=== PATIENT | female | born 1965 | race Caucasian/White ===

== ENCOUNTER 2019-07-16 01:45 | Inpatient (IN) | payer MEDICARE, MEDICAID ==
[2019-07-16 02:53] LABS: Urine Appearance Cloudy; Urine Bacteria Absent (Absent); Urine Bilirubin Negative (Negative); Urine Blood 2+ (Negative); Urine Color Yellow; Urine Glucose Negative (Negative); Urine Ketones Negative (Negative); Urine Nitrite Negative (Negative); Urine Protein 1+(30 mg/dL) (Negative); Urine Red Blood Cell 3+(>10/hpf) (Absent); Urine Specific Gravity 1.019 (1.010-1.030); Urine Squamous Epithelial Cell Present (Absent); Urine Urobilinogen Negative (Negative); Urine White Blood Cell Trace(0-5/hpf) (Absent)
[2019-07-16 03:04] LABS: Urine Benzodiazepine Screen None Detected (None Detect); Urine Opiates Screen None Detected (None Detect)
[2019-07-16 03:09] LABS: ABS Eosinophils 0.1 10^3/ul (0-0.6); ABS Lymphocytes 1.3 10^3/ul (1.0-4.8); ABS Monocytes 0.5 10^3/ul (0-0.8); ABS Neutrophils 6.2 10^3/ul (1.5-7.7); Hematocrit 47 % (35-47); Hemoglobin 15.5 g/dL (12.0-16.0); Lymphocyte % 16.5 %; Mean Corpuscular HGB Conc 33 g/dL (31-36); Mean Corpuscular Hemoglobin 28 pg (27-31); Mean Corpuscular Volume 82 fL (80-97); Mean Platelet Volume 7.7 fL (7.4-10.4); Nucleated Red Blood Cells % 0.1; Platelet Count 220 10^3/uL (150-450); Red Blood Count 5.65 10^6 /uL (3.70-4.87); Red Cell Distribution Width 14 % (10-15); White Blood Count 8.2 10^3/uL (3.5-10.8)
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
[2019-07-16 03:44] LABS: ALT 23 U/L (7-52); AST 27 U/L (13-39); Albumin 4.3 g/dL (3.2-5.2); Albumin/Globulin Ratio 1.2 (1-3); Alkaline Phosphatase 80 U/L (34-104); Anion Gap 8 mmol/L (2-11); BUN/Creatinine Ratio 12.4 (8-20); Blood Urea Nitrogen 11 mg/dL (6-24); CO2 Carbon Dioxide 26 mmol/L (22-32); Calcium 9.5 mg/dL (8.6-10.3); Chloride 101 mmol/L (101-111); EGFR Non-African American 66.1 (>60); Globulin 3.5 g/dL (2-4); Glucose 146 mg/dL (70-100); Potassium 3.6 mmol/L (3.5-5.0); Sodium 135 mmol/L (135-145); Total Protein 7.8 g/dL (6.4-8.9)
[2019-07-16 03:46] LABS: Alcohol < 10 mg/dL (<10); Salicylate < 2.50 mg/dL (<30)
[2019-07-16 04:00] LABS: TSH (Thyroid Stimulating Horm) 1.48 mcIU/mL (0.34-5.60)
[2019-07-16 04:50] LABS: Acetaminophen 0 mcg/mL
--- NOTE | 2019-07-16 07:12 | ED ---
Progress - Progress Note Progress Note: Patient is a sign out at 07:00 on 07/16/[address] Cheryl Constantino MD to Dr. Elaina Avitia MD at shift change, pending hold, evaluation, and disposition. At 11:50, MH contact acid plant operator reports that the patients case was reviewed by Dr. Jair Devine who will admit the patient to [facility] with a diagnosis of schizophrenia. Patient will be admitted to [facility] with a diagnosis of schizophrenia. - Consult/PCP Time Called: 11:50 Re-Evaluation - Re-Evaluation First Eval Re-Evaluation Time: 11:50 Change: Unchanged Comment: Patient will be admitted to [facility] Psych. Course/Dx - Diagnoses Provider Diagnoses: Psychosis, Schizophrenia - Provider Notifications Discussed Care Of Patient With: Jair Devine - At 11:50, contact acid plant operator reports that the patients case was reviewed by Dr. Jair Devine who will admit the patient to [facility] with a diagnosis of schizophrenia. Time Discussed With Above Provider: 11:50 Instructed by Provider To: Admit As Inpatient Discharge ED - Sign-Out/Discharge Documenting (check all that apply): Patient Departure - Admit, Receiving Sign- Out Receiving patient FROM: Cheryl Constantino - 07:00 on 07/16/19 - Discharge Plan Condition: Stable Disposition: PSYCHIATRIC FACILITY-[facility] Referrals: Nicolas Holt MD [Primary Care Provider] - - Attestation Statements Document Initiated by Scribe: Yes Documenting Scribe: Neelam Meadows Provider For Whom Scribe is Documenting (Include Credential): Elaina Avitia MD Scribe Attestation: Neelam Keita, scribed for Elaina Avitia MD on 07/16/19 at 1137. Status of Scribe Document: Ready
[2019-07-16] MEDS ORDERED: Al Hydrox/Mg Hydrox/Simet LIQ* 30 ML UDC PO PRN (11:07)
--- NOTE | 2019-07-16 12:02 | HP ---
H&P (Free Text) History and Physical: Justification for admission: Immediate Safety. CC " I have purity" Patient brought to [facility] emergency department by ambulance. When asking the patient the things that led to coming to the hospital the patient replied " what about me God, and not the homeless man ? Food is greer and should not be thrown away, time and evil will results in mistakes and no one concisely." Patient refusing medications at this time stating that all medications are a depressant and do you want me to be depressed? Patient is refusing to take medical and psychiatric medications. Patient denied access to firearms. Patient reported "perfect" sleep and appetite. The patient denied homicidal ideation intent or plan. The patient denied auditory hallucinations and reported seeing the future. Patient unable to participate in meaningful way to gather a accurate psychiatric review of systems PAST PSYCHIATRIC HISTORY: Prior Diagnosis : Schizophrenia History of past Psychiatric Hospitalizations: Multiple prior hospitalizations at [facility] that include 11/2015, 07/2013, 03/2013. [facility] 2007 for 7 months History of past suicide/homicide attempts : Denied past suicide attempts or self injurious behaviors. No history of violence. Outpatient follow-up: Medications: Past trials of medications include risperdal, Invega injection , trazodone Guardianship: None. FAMILY HISTORY: - Suicide: Denied family history of suicide. - Mental illness: Brother bipolar disorder, sister schizophrenia. - Substance abuse: Denied substance abuse among family members. SUBSTANCE ABUSE HISTORY: Denied using alcohol, tobacco, heroin cocaine or other illicit substances. Denied abusing pills for recreational use. Denied past Substance abuse treatment. SOCIAL HISTORY: - Denied a history of childhood physical and or sexual abuse Born in [facility] and raised by both parents. - Education: Completed College. No history of special education. - Living situation: Currently lives in [facility] - Employment history: unemployed on [employer] - Relationship: Single and has no children. - Legal history: Denied - service history: Denied PAST MEDICAL HISTORY: Hypertension. - Allergies: Sulfa drug allergy Physical Exam: Please see ED note Mental Status Exam on Admission APPEARANCE : 54 year old Female who appears stated age. Patient is not malodourous, and appears to have fair hygiene and grooming. BEHAVIOR: able to respond to redirection. EYE CONTACT: Fair PSYCHOMOTOR ACTIVITY: No psychomotor agitation or retardation. MOVEMENTS: No abnormal movements observed. SPEECH : hyperverbal MOOD : "Great " AFFECT : Type elevated Range is restricted Mood Incongruent THOUGHT PROCESS: tangential , loose associations , THOUGHT CONTENT: grandiose delusions PERCEPTION: Appears to responding to internal cues and seeing the future. SUICIDALITY Denied suicidal ideation, intent or plan. HOMICIDALITY Denied homicidal ideation, intent or plan. Insight/judgment: Poor insight and judgment ORIENTATION: Oriented to self, location, and time. Diagnosis on Admission: Schizophrenia. Assessment: 54 year old female with history of schizophrenia and medication non-compliance currently having a episode of psychosis and requires admission to the BSU at [facility]. Plan #Admit to BSU, Q15 minute observation. Start regular diet. Encourage participation in activities on the milieu. #Patient evaluated in ED and was determined by the emergency room Physician to be medically fit for admission to the BSU. # Justification for Admission: For immediate safety per outlined in the [facility] Hygiene Code. # The patient requires psychiatric inpatient admission at this time to assure safety, receive treatment and work toward stabilization. # Labs ordered: CBC, CMP, UDS, TSH, HBA1c, TSH, Toxicology screen, Urine analysis, and lipid profile. # EKG ordered for risk of QT prolongation of antipsychotic medication. # Start Invega 6mg PO daily for psychosis # Given history of medication non compliance, patient would benefit from long acting anti-psychotic injection. # Obtain collateral information once release is signed. # Collaboration with Social Work # Patient requires treatment and without proposed treatment patient will continue to be a danger to herself. Patient will require treatment over objection and appropriate paperwork will be completed # Hospitalist consulted for hypertension management #Goals before discharge include: To eliminate/ reduce suicidal ideation Tentative Discharge: Pending psychiatric stabilization The risks, benefits, and alternative treatment options were discussed as well as the risks of refusing treatment. After this discussion and an acknowledgement of this understanding was made. A risk/ benefit assessment of treatment was considered and discussed with the patient. When comparing the risks of treatment with the dangers of not receiving treatment, the benefits of treatment outweigh the treatment risks at this time. Risks of allergy, suicidal ideation, behavioral changes, dystonia, rashes, electrolyte imbalances, movement disorders, cardiac conduction changes, serotonin syndrome, metabolic risks and NMS were among some of the risks discussed. Sodium 135 mmol/L (135-145) 07/16/19 03:01 Potassium 3.6 mmol/L (3.5-5.0) 07/16/19 03:01 BUN 11 mg/dL (6-24) 07/16/19 03:01 Creatinine 0.89 mg/dL (0.51-0.95) 07/16/19 03:01 Calcium 9.5 mg/dL (8.6-10.3) 07/16/19 03:01 AST 27 U/L (13-39) 07/16/19 03:01 ALT 23 U/L (7-52) 07/16/19 03:01
[2019-07-16] MEDS: Hydrochlorothiazide TAB* 25 MG PO SCH ×2 (14:27→21:44)
[2019-07-16] MEDS: Paliperidone ER TAB* 6 MG TAB.ER PO SCH (14:27)
[2019-07-16] MEDS: Lisinopril TAB* 5 MG PO SCH ×2 (14:27→21:44)
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
[2019-07-16] MEDS ORDERED: cloNIDine TAB* 0.1 MG PO ONE (23:15)
[2019-07-16] MEDS ORDERED: cloNIDine TAB* 0.1 MG ONE (23:16)
[2019-07-17] MEDS: OLANzapine TAB* 10 MG PO PRN (01:59)
[2019-07-17] MEDS: Vitamin THERAPEUTIC TAB PO SCH (07:43)
[2019-07-17] MEDS: Lisinopril TAB* 5 MG PO SCH (07:43)
[2019-07-17] MEDS: Hydrochlorothiazide TAB* 25 MG PO SCH (07:43)
[2019-07-17] MEDS: Paliperidone ER TAB* 6 MG TAB.ER PO SCH (07:46)
--- NOTE | 2019-07-17 11:45 | PN ---
Subjective - Subjective Date of Service: 07/17/19 Service Type: 73590 Hosp care 35 min high complexity Subjective: Nursing Report: Patient was visible on unit, refusing to take invega, did not sleep overnight CC: " There needs to be leadership" Patient had a episode of hypotension and bradycardia last evening. She took blood pressure medications yesterday. Patient continued to make bizarre statements to staff. Patient did not sleep overnight. Patient reported that she doesnt need medications and that a cold bath will fix everything. She reported that she has schizophrenia and is going to anyway so she questions why she needs medications. Objective - General Observations Appearance: Disheveled Appears Stated Age: Yes Stature: Overweight Posture: Slumped Eye Contact: Avoidant Behavior/Activity: Accelerated - Interaction Observations Attitude Towards Examiner: Uncooperative Stated Mood: Elevated Affect: Labile Speech Pattern/Tone: Excessive Thought Process: Loose Associations Perception: Derealization Thought Content: Grandiose Thought Process: Lethality: Paranoid Ideation Hallucination Type: Denies Delusion Type: Grandeur - Cognitive Function Orientation: A&O x 4 Level of Consciousness: Awake Ability to Make Reasonable Decisions: Serverely Impaired - Medication Compliance Cooperative with Inpatient Medication Regimen: No - Group Participation Participates in Group Activities: No Assessment - Assessment Merits Inpatient Hospitalization: For Immediate Safety Clinical Impression: 54 year old female with history of schizophrenia and medication non- compliance currently having a episode of psychosis and requires admission to the BSU at [facility]. Plan - Plan Treatment Plan: Name: CHANTAL GRESHAM Birthdate: 1965 [id number] #Q15 minute observation. # The patient requires psychiatric inpatient admission at this time to assure safety, receive treatment and work toward stabilization. # EKG ordered for risk of QT prolongation of antipsychotic medication. # Continue Invega 6mg PO daily for psychosis # Given history of medication non compliance, patient would benefit from long acting anti-psychotic injection. # Obtain collateral information once release is signed. # Collaboration with Social Work # Patient requires treatment and without proposed treatment patient will continue to be a danger to herself. # Treatment over objection paperwork completed # Hospitalist consulted for hypertension management and plan to continue to follow the patient #Goals before discharge include: Psychiatric stabilization Tentative Discharge: Pending psychiatric stabilization Continued Medication Management: Continue Outpt Medication Medications: Current Medications Acetaminophen (Tylenol Tab*) 650 mg PO Q4H PRN PRN Reason: for pain; or Temp >101 F Al Hydrox/Mg Hydrox/Simethicone (Maalox Plus*) 30 ml PO Q4H PRN PRN Reason: INDIGESTION Hydrochlorothiazide (Hydrodiuril Tab*) 25 mg PO DAILY [facility] Last Admin: 07/17/19 07:43 Dose: 25 mg Lisinopril (Prinivil Tab*) 5 mg PO DAILY [facility] Last Admin: 07/17/19 07:43 Dose: 5 mg Multivitamins (Theragran Tab*) 1 tab PO DAILY [facility] Last Admin: 07/17/19 07:43 Dose: 1 tab Olanzapine (Zyprexa Tab*) 10 mg PO Q6H PRN PRN Reason: AGITATION Last Admin: 07/17/19 01:59 Dose: 10 mg Paliperidone (Invega Er Tab*) 6 mg PO DAILY [facility] Last Admin: 07/17/19 07:46 Dose: Not Given - Discharge Plan Discharge Plan: Inpatient Hospitalization
--- NOTE | 2019-07-17 18:43 | PN ---
Subjective Date of Service: 07/17/19 Interval History: Ms. Monteiro is laying in bed when I enter. She denies galeana, vision changes, but is quickly distracted and changes subjects. She has no complaints today. Objective Active Medications: Acetaminophen (Tylenol Tab*) 650 mg PO Q4H PRN PRN Reason: for pain; or Temp >101 F Al Hydrox/Mg Hydrox/Simethicone (Maalox Plus*) 30 ml PO Q4H PRN PRN Reason: INDIGESTION Hydrochlorothiazide (Hydrodiuril Tab*) 25 mg PO DAILY [facility] Last Admin: 07/17/19 07:43 Dose: 25 mg Lisinopril (Prinivil Tab*) 10 mg PO DAILY [facility] Multivitamins (Theragran Tab*) 1 tab PO DAILY [facility] Last Admin: 07/17/19 07:43 Dose: 1 tab Olanzapine (Zyprexa Tab*) 10 mg PO Q6H PRN PRN Reason: AGITATION Last Admin: 07/17/19 01:59 Dose: 10 mg Paliperidone (Invega Er Tab*) 6 mg PO DAILY [facility] Last Admin: 07/17/19 07:46 Dose: Not Given Vital Signs: Temp Pulse Resp BP Pulse Ox 98.6 F 66 16 173/43 99 07/17/19 10:08 07/17/19 10:08 07/17/19 12:55 07/17/19 10:08 07/17/19 10:08 Oxygen Devices in Use Now: None Appearance: Ms. Monteiro is an obese middle-aged white woman who is sitting up in bed. She appears to be in no acute distress. She is easily distracted and fanciful during conversation. Eyes: No Scleral Icterus, PERRLA Ears/Nose/Mouth/Throat: NL Teeth, Lips, Gums, Clear Oropharnyx, Mucous Membranes Moist Neck: NL Appearance and Movements; NL JVP, Trachea Midline Respiratory: Symmetrical Chest Expansion and Respiratory Effort, Clear to Auscultation Cardiovascular: NL Sounds; No Murmurs; No JVD, RRR, No Edema Abdominal: NL Sounds; No Tenderness; No Distention, No Hepatosplenomegaly Extremities: No Edema, No Clubbing, Cyanosis Result Diagrams: 07/16/19 03:01 07/16/19 03:01 Additional Lab and Data: Lab Results 07/16/19 07/16/19 07/16/19 Range/Units 02:07 02:07 03:01 WBC 8.2 (3.5-10.8) 10^3/uL RBC 5.65 H (3.70-4.87) 10^6 /uL Hgb 15.5 (12.0-16.0) g/dL Hct 47 (35-47) % MCV 82 (80-97) fL MCH 28 (27-31) pg MCHC 33 (31-36) g/dL RDW 14 (10-15) % Plt Count 220 (150-450) 10^3/uL MPV 7.7 (7.4-10.4) fL Neut % (Auto) 75.5 % Lymph % (Auto) 16.5 % [place] % (Auto) 6.6 % Eos % (Auto) 1.0 % Baso % (Auto) 0.4 % Absolute Neuts (auto) 6.2 (1.5-7.7) 10^3/ul Absolute Lymphs (auto) 1.3 (1.0-4.8) 10^3/ul Absolute Monos (auto) 0.5 (0-0.8) 10^3/ul Absolute Eos (auto) 0.1 (0-0.6) 10^3/ul Absolute Basos (auto) 0.0 (0-0.2) 10^3/ul Absolute Nucleated RBC 0.0 10^3/ul Nucleated RBC % 0.1 Urine Color Yellow Urine Appearance Cloudy Urine pH 5.0 (5-9) Ur Specific Miranda 1.019 (1.010-1.030) Urine Protein 1+(30 mg/dl) A (Negative) Urine Ketones Negative (Negative) Urine Blood 2+ A (Negative) Urine Nitrate Negative (Negative) Urine Bilirubin Negative (Negative) Urine Urobilinogen Negative (Negative) Ur Leukocyte Esterase Negative (Negative) Urine WBC (Auto) Trace(0-5/hpf) (Absent) Urine RBC (Auto) 3+(>10/hpf) A (Absent) Ur Squamous Epith Cells Present A (Absent) Urine Bacteria Absent (Absent) Urine Glucose Negative (Negative) Urine Opiates Screen None detected (None Detect) Ur Barbiturates Screen None detected (None Detect) Ur Phencyclidine Scrn None detected (None Detect) Ur Amphetamines Screen None detected (None Detect) U Benzodiazepines Scrn None detected (None Detect) Urine Cocaine Screen None detected (None Detect) U Cannabinoids Screen None detected (None Detect) Assess/Plan/Problems-Billing Assessment: 54 yof PMHx HTN untreated, schizophrenia presents to [facility] for admission, found to have hypertension. - Patient Problems (1) Hypertension Comment: -pt reports h/o HTN which she has no longer takes rx for; unable to give further details, unknow previous rx, poor historian -lisinopril 5, HCTZ 25 today with mild decrease in bp, SBP 170's -increase lisinopril to 10, continue HCTZ -BP q4-6 hours for trend -continue to monitor (2) Schizophrenia, paranoid type Comment: -Management per [facility] team (3) Full code status Status and Disposition: Inpatient. Discharge per primary team.
[2019-07-18] MEDS: Hydrochlorothiazide TAB* 25 MG PO SCH (10:21)
[2019-07-18] MEDS: Lisinopril TAB* 10 MG PO SCH (10:21)
[2019-07-18] MEDS: Paliperidone ER TAB* 6 MG TAB.ER PO SCH (10:21)
[2019-07-18] MEDS: Vitamin THERAPEUTIC TAB PO SCH (10:21)
--- NOTE | 2019-07-18 12:23 | PN ---
Subjective - Subjective Date of Service: 07/18/19 Service Type: [id number] Hosp care 35 min high complexity Subjective: Nursing Report: Patient was visible on unit, not compliant with medication refusing vital signs CC: "I am super Patient was seen and evaluated today in the common room. The patient reported she is satisfaction guaranteed. She refused labs, vital signs and medications last evening and this morning. Patient continues to display bizarre behavior. She reported having adequate appetite. Objective - General Observations Appearance: Disheveled Appears Stated Age: Yes Stature: Overweight Posture: Slumped Eye Contact: Avoidant Behavior/Activity: Peculiar - Interaction Observations Attitude Towards Examiner: Uncooperative Stated Mood: Expansive Affect: Labile Speech Pattern/Tone: Inappropriate, Echolalia Thought Process: Loose Associations Perception: Depersonalization Thought Content: Paranoid Thought Process: Lethality: Paranoid Ideation Hallucination Type: Denies Delusion Type: Grandeur - Cognitive Function Orientation: A&O x 4 Level of Consciousness: Awake - Medication Compliance Cooperative with Inpatient Medication Regimen: No - Group Participation Participates in Group Activities: No Assessment - Assessment Merits Inpatient Hospitalization: For Immediate Safety Clinical Impression: 54 year old female with history of schizophrenia and medication non- compliance currently having a episode of psychosis and requires admission to the [facility] at [facility]. Plan - Plan Treatment Plan: Name: CHANTAL GRESHAM Birthdate: 1965 [id number] #Q15 minute observation. # The patient requires psychiatric inpatient admission at this time to assure safety, receive treatment and work toward stabilization. # EKG ordered for risk of QT prolongation of antipsychotic medication. # Continue Invega 6mg PO daily for psychosis # Given history of medication non compliance, patient would benefit from long acting anti-psychotic injection. # Obtain collateral information once release is signed. # Collaboration with Social Work # Patient requires treatment and without proposed treatment patient will continue to be a danger to herself. # Treatment over objection paperwork completed # Hospitalist consulted for hypertension management and plan to continue to follow the patient #Goals before discharge include: Psychiatric stabilization Tentative Discharge: Pending psychiatric stabilization Continued Medication Management: Continue Outpt Medication Medications: Current Medications Acetaminophen (Tylenol Tab*) 650 mg PO Q4H PRN PRN Reason: for pain; or Temp >101 F Al Hydrox/Mg Hydrox/Simethicone (Maalox Plus*) 30 ml PO Q4H PRN PRN Reason: INDIGESTION Hydrochlorothiazide (Hydrodiuril Tab*) 25 mg PO DAILY [facility] Last Admin: 07/18/19 10:21 Dose: Not Given Lisinopril (Prinivil Tab*) 10 mg PO DAILY [facility] Last Admin: 07/18/19 10:21 Dose: Not Given Multivitamins (Theragran Tab*) 1 tab PO DAILY [facility] Last Admin: 07/18/19 10:21 Dose: Not Given Olanzapine (Zyprexa Tab*) 10 mg PO Q6H PRN PRN Reason: AGITATION Last Admin: 07/17/19 01:59 Dose: 10 mg Paliperidone (Invega Er Tab*) 6 mg PO DAILY [facility] Last Admin: 07/18/19 10:21 Dose: Not Given - Discharge Plan Discharge Plan: Inpatient Hospitalization
--- NOTE | 2019-07-18 17:06 | PN ---
Hospitalist Progress Note Date of Service: 07/18/19 Did not evaluate patient today, but have been following distantly. Patient has been refusing blood pressure checks by nursing staff. Will continue to follow. Hopefully with continued psychiatric therapy she will allow VS checks.
[2019-07-19] MEDS: Vitamin THERAPEUTIC TAB PO SCH (10:01)
[2019-07-19] MEDS: Hydrochlorothiazide TAB* 25 MG PO SCH (10:01)
[2019-07-19] MEDS: Lisinopril TAB* 10 MG PO SCH (10:01)
[2019-07-19] MEDS: Paliperidone ER TAB* 6 MG TAB.ER PO SCH (10:01)
--- NOTE | 2019-07-19 10:44 | PN ---
Subjective - Subjective Date of Service: 07/19/19 Service Type: [id number] Hosp care 35 min high complexity Subjective: Nursing Report: Patient was visible on unit, making bizarre statements, CC: " You are so fantastic Patient was seen and evaluated today. The patient reported she feels "fantastic ". She reported having visitors last evening. She reported having adequate appetite. She slept 1.5 hrs last night. Patient continues to refuse medications. Objective - General Observations Appearance: Disheveled Appears Stated Age: Yes Stature: Overweight Posture: Slumped Eye Contact: Avoidant Behavior/Activity: Peculiar - Interaction Observations Attitude Towards Examiner: Defensive Stated Mood: Expansive Affect: Bright Speech Pattern/Tone: Excessive Thought Process: Loose Associations Perception: Derealization Thought Content: Grandiose Thought Process: Lethality: Paranoid Ideation Hallucination Type: None Delusion Type: None - Cognitive Function Orientation: A&O x 4 Level of Consciousness: Awake Judgment Within Normal Limits: No Ability to Make Reasonable Decisions: Serverely Impaired - Medication Compliance Cooperative with Inpatient Medication Regimen: No - Group Participation Participates in Group Activities: No Assessment - Assessment Merits Inpatient Hospitalization: For Immediate Safety Clinical Impression: 54 year old female with history of schizophrenia and medication non- compliance currently having a episode of psychosis and requires admission to the [facility] at [facility]. Plan - Plan Treatment Plan: Name: CHANTAL GRESHAM Birthdate: 1965 [id number] #Q15 minute observation. # The patient requires psychiatric inpatient admission at this time to assure safety, receive treatment and work toward stabilization. # EKG ordered for risk of QT prolongation of antipsychotic medication. # Continue Invega 6mg PO daily for psychosis # Given history of medication non compliance, patient would benefit from long acting anti-psychotic injection. # Obtain collateral information once release is signed. # Collaboration with Social Work # Patient requires treatment and without proposed treatment patient will continue to be a danger to herself. # Treatment over objection paperwork completed awaiting court date # Hospitalist consulted for hypertension management and plan to continue to follow the patient #Goals before discharge include: Psychiatric stabilization Tentative Discharge: Pending psychiatric stabilization Continued Medication Management: Continue Outpt Medication Medications: Current Medications Acetaminophen (Tylenol Tab*) 650 mg PO Q4H PRN PRN Reason: for pain; or Temp >101 F Al Hydrox/Mg Hydrox/Simethicone (Maalox Plus*) 30 ml PO Q4H PRN PRN Reason: INDIGESTION Hydrochlorothiazide (Hydrodiuril Tab*) 25 mg PO DAILY [facility] Last Admin: 07/19/19 10:01 Dose: Not Given Lisinopril (Prinivil Tab*) 10 mg PO DAILY [facility] Last Admin: 07/19/19 10:01 Dose: Not Given Multivitamins (Theragran Tab*) 1 tab PO DAILY [facility] Last Admin: 07/19/19 10:01 Dose: Not Given Olanzapine (Zyprexa Tab*) 10 mg PO Q6H PRN PRN Reason: AGITATION Last Admin: 07/17/19 01:59 Dose: 10 mg Paliperidone (Invega Er Tab*) 6 mg PO DAILY [facility] Last Admin: 07/19/19 10:01 Dose: Not Given - Discharge Plan Discharge Plan: Inpatient Hospitalization
[2019-07-20] MEDS: Lisinopril TAB* 10 MG PO SCH (07:54)
[2019-07-20] MEDS: Paliperidone ER TAB* 6 MG TAB.ER PO SCH (07:54)
[2019-07-20] MEDS: Vitamin THERAPEUTIC TAB PO SCH (07:54)
[2019-07-20] MEDS: Hydrochlorothiazide TAB* 25 MG PO SCH (07:54)
[2019-07-21] MEDS: Acetaminophen TAB* 325 MG PO PRN (03:40)
[2019-07-21] MEDS: Paliperidone ER TAB* 6 MG TAB.ER PO SCH (08:12)
[2019-07-21] MEDS: Lisinopril TAB* 10 MG PO SCH (08:12)
[2019-07-21] MEDS: Vitamin THERAPEUTIC TAB PO SCH (08:12)
[2019-07-21] MEDS: Hydrochlorothiazide TAB* 25 MG PO SCH (08:12)
--- NOTE | 2019-07-21 17:29 | PN ---
Progress Note - Progress Note Date of Service: 07/21/19 Note: Katya declined to see me. Says " you aren't my doctor " and walked away. Several attempts were unsuccessful. Appears guarded and suspicious. Per nursing she has been the same since admission and refusing to take meds but not a management problem over all. Plan is to continue close monitoring and pursue TOO.
[2019-07-22] MEDS: Lisinopril TAB* 10 MG PO SCH (09:31)
[2019-07-22] MEDS: Hydrochlorothiazide TAB* 25 MG PO SCH (09:31)
[2019-07-22] MEDS: Paliperidone ER TAB* 6 MG TAB.ER PO SCH (09:32)
[2019-07-22] MEDS: Vitamin THERAPEUTIC TAB PO SCH (09:32)
--- NOTE | 2019-07-22 13:11 | PN ---
Subjective - Subjective Date of Service: 07/22/19 Service Type: [id number] Hosp care 35 min high complexity Subjective: Nursing Report: Patient was visible on unit, Not taking medications CC: "Satisfaction Patient was seen and evaluated today in the common room. The patient reported that everything is divine and perfection. She is refusing to take medications, labs, and vital signs. Patient had visitors over the weekend. Objective - General Observations Appearance: Disheveled Appears Stated Age: Yes Stature: Overweight Posture: Slumped Eye Contact: Intense Behavior/Activity: Accelerated - Interaction Observations Attitude Towards Examiner: Uncooperative Stated Mood: Elevated Affect: Incongruent Speech Pattern/Tone: Rambling Thought Process: Flight of Ideas Perception: Depersonalization Thought Content: Preoccupation/Ruminations Thought Process: Lethality: Paranoid Ideation Hallucination Type: Denies Delusion Type: Grandeur - Cognitive Function Orientation: A&O x 4 Level of Consciousness: Awake Ability to Make Reasonable Decisions: Serverely Impaired - Medication Compliance Cooperative with Inpatient Medication Regimen: No - Group Participation Participates in Group Activities: No Assessment - Assessment Merits Inpatient Hospitalization: For Immediate Safety Clinical Impression: 54 year old female with history of schizophrenia and medication non- compliance currently having a episode of psychosis and requires admission to the [facility] at [facility]. Plan - Plan Treatment Plan: Name: CHANTAL GRESHAM Birthdate: 1965 [id number] #Q15 minute observation. # The patient requires psychiatric inpatient admission at this time to assure safety, receive treatment and work toward stabilization. # EKG ordered for risk of QT prolongation of antipsychotic medication. # Continue Invega 6mg PO daily for psychosis # Given history of medication non compliance, patient would benefit from long acting anti-psychotic injection. # Collateral information from the patients sister who confirmed patient is far from baseline scattered thoughts, family is encouraging medications # Collaboration with Social Work # Patient requires treatment and without proposed treatment patient will continue to be a danger to herself. # Treatment over objection paperwork completed awaiting court date # Patient was evaluated for hypertension #Goals before discharge include: Psychiatric stabilization Tentative Discharge: Pending psychiatric stabilization Sodium 135 mmol/L (135-145) 07/16/19 03:01 Potassium 3.6 mmol/L (3.5-5.0) 07/16/19 03:01 BUN 11 mg/dL (6-24) 07/16/19 03:01 Creatinine 0.89 mg/dL (0.51-0.95) 07/16/19 03:01 Calcium 9.5 mg/dL (8.6-10.3) 07/16/19 03:01 AST 27 U/L (13-39) 07/16/19 03:01 ALT 23 U/L (7-52) 07/16/19 03:01 Continued Medication Management: Continue Outpt Medication Medications: Current Medications Acetaminophen (Tylenol Tab*) 650 mg PO Q4H PRN PRN Reason: for pain; or Temp >101 F Last Admin: 07/21/19 03:40 Dose: 650 mg Al Hydrox/Mg Hydrox/Simethicone (Maalox Plus*) 30 ml PO Q4H PRN PRN Reason: INDIGESTION Hydrochlorothiazide (Hydrodiuril Tab*) 25 mg PO DAILY [facility] Last Admin: 07/22/19 09:31 Dose: Not Given Lisinopril (Prinivil Tab*) 10 mg PO DAILY [facility] Last Admin: 07/22/19 09:31 Dose: Not Given Multivitamins (Theragran Tab*) 1 tab PO DAILY [facility] Last Admin: 07/22/19 09:32 Dose: Not Given Olanzapine (Zyprexa Tab*) 10 mg PO Q6H PRN PRN Reason: AGITATION Last Admin: 07/17/19 01:59 Dose: 10 mg Paliperidone (Invega Er Tab*) 6 mg PO DAILY [facility] Last Admin: 07/22/19 09:32 Dose: Not Given - Discharge Plan Discharge Plan: Inpatient Hospitalization
[2019-07-23] MEDS: Acetaminophen TAB* 325 MG PO PRN (03:52)
[2019-07-23] MEDS: Hydrochlorothiazide TAB* 25 MG PO SCH (09:55)
[2019-07-23] MEDS: Lisinopril TAB* 10 MG PO SCH (09:55)
[2019-07-23] MEDS: Paliperidone ER TAB* 6 MG TAB.ER PO SCH ×2 (09:55→12:41)
[2019-07-23] MEDS: Vitamin THERAPEUTIC TAB PO SCH (09:55)
--- NOTE | 2019-07-23 12:51 | PN ---
Subjective - Subjective Date of Service: 07/23/19 Service Type: [id number] Hosp care 35 min high complexity Subjective: Nursing Report: Patient was visible on unit, making bizarre statements, had visitors overnight. CC: " Everything is fantastic Patient was seen and evaluated today. The patient reported she feels "fantastic ". Her brother came this afternoon to visit her. She took invega po this afternoon. She reported that she did not want to go to the [facility]. She reported having adequate appetite. Objective - General Observations Appearance: Disheveled Appears Stated Age: Yes Stature: Overweight Posture: Slumped Eye Contact: Intense Behavior/Activity: Accelerated - Interaction Observations Attitude Towards Examiner: Mistrustful Stated Mood: Anxious Affect: Blunted Speech Pattern/Tone: Electronic Thought Process: Disorganized Perception: WNL Thought Content: Grandiose Hallucination Type: Denies Delusion Type: Grandeur - Cognitive Function Orientation: A&O x 4 Level of Consciousness: Awake - Medication Compliance Cooperative with Inpatient Medication Regimen: Partial - Group Participation Participates in Group Activities: No Assessment - Assessment Merits Inpatient Hospitalization: For Immediate Safety Clinical Impression: 54 year old female with history of schizophrenia and medication non- compliance currently having a episode of psychosis and requires admission to the [facility] at [facility]. Plan - Plan Treatment Plan: Name: CHANTAL GRESHAM Birthdate: 1965 [id number] #Q15 minute observation. # The patient requires psychiatric inpatient admission at this time to assure safety, receive treatment and work toward stabilization. # EKG ordered for risk of QT prolongation of antipsychotic medication. # Continue Invega 6mg PO daily for psychosis. Patient took today. # Will order Invega 234mg long acting IM for tomorrow # Given history of medication non compliance, patient would benefit from long acting anti-psychotic injection. # Collateral information from the patients sister who confirmed patient is far from baseline scattered thoughts, family is encouraging medications # Collaboration with Social Work # Patient requires treatment and without proposed treatment patient will continue to be a danger to herself. # Treatment over objection paperwork completed awaiting court date # Patient was evaluated for hypertension and treatment was started however she has intermittent compliance #Goals before discharge include: Psychiatric stabilization Tentative Discharge: Pending psychiatric stabilization Sodium 135 mmol/L (135-145) 07/16/19 03:01 Potassium 3.6 mmol/L (3.5-5.0) 07/16/19 03:01 BUN 11 mg/dL (6-24) 07/16/19 03:01 Creatinine 0.89 mg/dL (0.51-0.95) 07/16/19 03:01 Calcium 9.5 mg/dL (8.6-10.3) 07/16/19 03:01 AST 27 U/L (13-39) 07/16/19 03:01 ALT 23 U/L (7-52) 07/16/19 03:01 Continued Medication Management: Continue Outpt Medication Medications: Current Medications Acetaminophen (Tylenol Tab*) 650 mg PO Q4H PRN PRN Reason: for pain; or Temp >101 F Last Admin: 07/23/19 03:52 Dose: 650 mg Al Hydrox/Mg Hydrox/Simethicone (Maalox Plus*) 30 ml PO Q4H PRN PRN Reason: INDIGESTION Hydrochlorothiazide (Hydrodiuril Tab*) 25 mg PO DAILY [facility] Last Admin: 07/23/19 09:55 Dose: Not Given Lisinopril (Prinivil Tab*) 10 mg PO DAILY [facility] Last Admin: 07/23/19 09:55 Dose: Not Given Multivitamins (Theragran Tab*) 1 tab PO DAILY [facility] Last Admin: 07/23/19 09:55 Dose: Not Given Olanzapine (Zyprexa Tab*) 10 mg PO Q6H PRN PRN Reason: AGITATION Last Admin: 07/17/19 01:59 Dose: 10 mg Paliperidone (Invega Er Tab*) 6 mg PO DAILY [facility] Last Admin: 07/23/19 12:41 Dose: 6 mg - Discharge Plan Discharge Plan: Inpatient Hospitalization Outpatient Program: [facility]
--- NOTE | 2019-07-23 15:48 | PN ---
Subjective Date of Service: 07/23/19 Interval History: Discussed with patient that she has not been allowing nursing staff to check BP. Discussed risks of having longterm hypertension. Patient states, "I would love for the nurses to check my blood pressure if it didn't hurt so much." She states that it hurts even when the BP is taken manually as opposed to with machine. Patient denies dizziness, headache, visual changes, chest pain, difficulty breathing, palpitations. Objective Active Medications: Acetaminophen (Tylenol Tab*) 650 mg PO Q4H PRN PRN Reason: for pain; or Temp >101 F Last Admin: 07/23/19 03:52 Dose: 650 mg Al Hydrox/Mg Hydrox/Simethicone (Maalox Plus*) 30 ml PO Q4H PRN PRN Reason: INDIGESTION Hydrochlorothiazide (Hydrodiuril Tab*) 25 mg PO DAILY [facility] Last Admin: 07/23/19 09:55 Dose: Not Given Lisinopril (Prinivil Tab*) 10 mg PO DAILY [facility] Last Admin: 07/23/19 09:55 Dose: Not Given Multivitamins (Theragran Tab*) 1 tab PO DAILY [facility] Last Admin: 07/23/19 09:55 Dose: Not Given Olanzapine (Zyprexa Tab*) 10 mg PO Q6H PRN PRN Reason: AGITATION Last Admin: 07/17/19 01:59 Dose: 10 mg Paliperidone (Invega Er Tab*) 6 mg PO DAILY [facility] Last Admin: 07/23/19 12:41 Dose: 6 mg Paliperidone Palmitate (Invega Sustenna*) 234 mg IM ONCE ONE Stop: 07/24/19 09:01 Vital Signs - 8 hr 07/23/19 14:34 Respiratory 16 Rate Oxygen Devices in Use Now: None Appearance: Middle aged white female, standing in room in BSU, appearing comfortable and in NAD Eyes: No Scleral Icterus, PERRLA Ears/Nose/Mouth/Throat: Mucous Membranes Moist Neck: Trachea Midline Respiratory: Symmetrical Chest Expansion and Respiratory Effort, - - patient declined auscultation Cardiovascular: - - patient declined exam Abdominal: - - patient declined exam Extremities: - - unable to assess as patient declines physical exam and is wearing pants and shows, though hands do not appear edematous and no clubbing to hands Skin: - - skin appears intact Neurological: Alert and Oriented x 3, NL Sensation, - - Psych: patient polite and pleasant Result Diagrams: 07/16/19 03:01 07/16/19 03:01 Additional Lab and Data: Lab Results 07/16/19 07/16/19 07/16/19 Range/Units 02:07 02:07 03:01 WBC 8.2 (3.5-10.8) 10^3/uL RBC 5.65 H (3.70-4.87) 10^6 /uL Hgb 15.5 (12.0-16.0) g/dL Hct 47 (35-47) % MCV 82 (80-97) fL MCH 28 (27-31) pg MCHC 33 (31-36) g/dL RDW 14 (10-15) % Plt Count 220 (150-450) 10^3/uL MPV 7.7 (7.4-10.4) fL Neut % (Auto) 75.5 % Lymph % (Auto) 16.5 % [place] % (Auto) 6.6 % Eos % (Auto) 1.0 % Baso % (Auto) 0.4 % Absolute Neuts (auto) 6.2 (1.5-7.7) 10^3/ul Absolute Lymphs (auto) 1.3 (1.0-4.8) 10^3/ul Absolute Monos (auto) 0.5 (0-0.8) 10^3/ul Absolute Eos (auto) 0.1 (0-0.6) 10^3/ul Absolute Basos (auto) 0.0 (0-0.2) 10^3/ul Absolute Nucleated RBC 0.0 10^3/ul Nucleated RBC % 0.1 Urine Color Yellow Urine Appearance Cloudy Urine pH 5.0 (5-9) Ur Specific [place] 1.019 (1.010-1.030) Urine Protein 1+(30 mg/dl) A (Negative) Urine Ketones Negative (Negative) Urine Blood 2+ A (Negative) Urine Nitrate Negative (Negative) Urine Bilirubin Negative (Negative) Urine Urobilinogen Negative (Negative) Ur Leukocyte Esterase Negative (Negative) Urine WBC (Auto) Trace(0-5/hpf) (Absent) Urine RBC (Auto) 3+(>10/hpf) A (Absent) Ur Squamous Epith Cells Present A (Absent) Urine Bacteria Absent (Absent) Urine Glucose Negative (Negative) Urine Opiates Screen None detected (None Detect) Ur Barbiturates Screen None detected (None Detect) Ur Phencyclidine Scrn None detected (None Detect) Ur Amphetamines Screen None detected (None Detect) U Benzodiazepines Scrn None detected (None Detect) Urine Cocaine Screen None detected (None Detect) U Cannabinoids Screen None detected (None Detect) Microbiology and Other Data: Microbiology 07/16/19 02:07 Urine Culture - Final Urine Assess/Plan/Problems-Billing Assessment: 54 yof PMHx HTN untreated, schizophrenia presents to [facility] for admission, found to have hypertension. - Patient Problems (1) Hypertension Current Visit: Yes Status: Acute Code(s): I10 - ESSENTIAL (PRIMARY) HYPERTENSION SNOMED Code(s): 61743580 Comment: -pt reports h/o HTN which she has no longer takes rx for at home; unable to give further details, unknow previous rx, poor historian -continue lisinopril and HCTZ -unfortunately, patient has been declining BP checks from nursing since 07/17/19 , which is before 10mg lisinopril dose was added -discussed risks of longstanding hypertension (2) Schizophrenia, paranoid type Current Visit: No Status: Acute Priority: High Onset Date: 11/13/15 Code (s): F20.0 - PARANOID SCHIZOPHRENIA SNOMED Code(s): 49631367 Comment: -Management per [facility] team (3) Full code status Current Visit: Yes Status: Acute Code(s): Z78.9 - OTHER SPECIFIED HEALTH STATUS SNOMED Code(s): 622899429 Status and Disposition: Disposition per psychiatry. I will sign off at this time as the patient has been refusing blood pressure checks. Please feel free to contact the hospitalist service if patient allows BP reading and it is elevated. We will be happy to see this patient again if needed.
[2019-07-24] MEDS ORDERED: Paliperidone SUSTENNA* 234 MG/1.5 ML IM ONE (09:00)
[2019-07-24] MEDS: Paliperidone ER TAB* 6 MG TAB.ER PO SCH (10:47)
[2019-07-24] MEDS: Vitamin THERAPEUTIC TAB PO SCH (10:48)
[2019-07-24] MEDS: Hydrochlorothiazide TAB* 25 MG PO SCH (10:49)
[2019-07-24] MEDS: Lisinopril TAB* 10 MG PO SCH (10:49)
--- NOTE | 2019-07-24 16:43 | PN ---
BS[facility]: Group Therapy Note - Service Type Service Type: [id number] Group Psychotherapy - Group Participation Patient Participating in Group: Yes Level of Group Participation: Attentive, Spontaneously Participate Relatedness to Group: Defended - Additional Group Comments Group Comments: Katya was late to group, but she was confident and greeted each person who entered late with the attitude of a clinical laboratory science professor who is pointing out the lateness of each additional pupil. She had exacting standards for the group and took detailed notes, although they did not appear to be helpful.
[2019-07-25] MEDS: Paliperidone ER TAB* 6 MG TAB.ER PO SCH (10:55)
[2019-07-25] MEDS: Vitamin THERAPEUTIC TAB PO SCH (10:55)
[2019-07-25] MEDS: Hydrochlorothiazide TAB* 25 MG PO SCH (10:55)
[2019-07-25] MEDS: Lisinopril TAB* 10 MG PO SCH (10:55)
--- NOTE | 2019-07-25 11:27 | PN ---
Subjective - Subjective Date of Service: 07/25/19 Service Type: [id number] Hosp care 35 min high complexity Subjective: Nursing Report: Patient was visible on unit slept overnight ate meals and went to groups. CC: " Everything is excellent Patient was seen and evaluated today. The patient reported she feels "excellent ". She received injection today without complications. She reported having adequate appetite. She is eager to attend yoga today. Objective - General Observations Appearance: Neat Appears Stated Age: Yes Stature: Overweight Posture: Slumped Eye Contact: Intense Behavior/Activity: Accelerated - Interaction Observations Attitude Towards Examiner: Mistrustful Stated Mood: Expansive Affect: Labile Speech Pattern/Tone: Normal Volume Thought Process: Loose Associations Thought Content: Paranoid, Grandiose Thought Process: Lethality: Paranoid Ideation Delusion Type: Control - Cognitive Function Orientation: A&O x 4 Level of Consciousness: Awake - Medication Compliance Cooperative with Inpatient Medication Regimen: Partial - Group Participation Participates in Group Activities: Yes Assessment - Assessment Merits Inpatient Hospitalization: For Immediate Safety Clinical Impression: 54 year old female with history of schizophrenia and medication non- compliance currently having a episode of psychosis and requires admission to the [facility] at [facility]. Plan - Plan Treatment Plan: Name: CHANTAL GRESHAM Birthdate: 1965 [id number] #Q15 minute observation. # The patient requires psychiatric inpatient admission at this time to assure safety, receive treatment and work toward stabilization. # EKG ordered for risk of QT prolongation of antipsychotic medication. # Continue Invega 6mg PO daily for psychosis. # Received Invega 234mg long acting IM today without complications next booster scheduled for 156mg on Monday and next due on 08/22/19 # Given history of medication non compliance, patient would benefit from long acting anti-psychotic injection. # Family meeting Monday at noon # Collaboration with Social Work # Patient requires treatment and without proposed treatment patient will continue to be a danger to herself. # Court date Monday at 215pm will cancel if patient continues to be compliant with medications. # Patient was evaluated for hypertension and treatment was started however refusing vital signs and has intermittent compliance with medications #Goals before discharge include: Psychiatric stabilization Tentative Discharge: Pending psychiatric stabilization Sodium 135 mmol/L (135-145) 07/16/19 03:01 Potassium 3.6 mmol/L (3.5-5.0) 07/16/19 03:01 BUN 11 mg/dL (6-24) 07/16/19 03:01 Creatinine 0.89 mg/dL (0.51-0.95) 07/16/19 03:01 Calcium 9.5 mg/dL (8.6-10.3) 07/16/19 03:01 AST 27 U/L (13-39) 07/16/19 03:01 ALT 23 U/L (7-52) 07/16/19 03:01 Continued Medication Management: Continue Outpt Medication Medications: Current Medications Acetaminophen (Tylenol Tab*) 650 mg PO Q4H PRN PRN Reason: for pain; or Temp >101 F Last Admin: 07/23/19 03:52 Dose: 650 mg Al Hydrox/Mg Hydrox/Simethicone (Maalox Plus*) 30 ml PO Q4H PRN PRN Reason: INDIGESTION Hydrochlorothiazide (Hydrodiuril Tab*) 25 mg PO DAILY [facility] Last Admin: 07/25/19 10:55 Dose: Not Given Lisinopril (Prinivil Tab*) 10 mg PO DAILY [facility] Last Admin: 07/25/19 10:55 Dose: Not Given Multivitamins (Theragran Tab*) 1 tab PO DAILY [facility] Last Admin: 07/25/19 10:55 Dose: Not Given Olanzapine (Zyprexa Tab*) 10 mg PO Q6H PRN PRN Reason: AGITATION Last Admin: 07/17/19 01:59 Dose: 10 mg Paliperidone (Invega Er Tab*) 6 mg PO DAILY [facility] Last Admin: 07/25/19 10:55 Dose: Not Given - Discharge Plan Discharge Plan: Inpatient Hospitalization
[2019-07-26] MEDS: Hydrochlorothiazide TAB* 25 MG PO SCH ×2 (09:31→13:15)
[2019-07-26] MEDS: Lisinopril TAB* 10 MG PO SCH ×2 (09:31→13:15)
[2019-07-26] MEDS: Vitamin THERAPEUTIC TAB PO SCH (09:31)
--- NOTE | 2019-07-26 10:44 | PN ---
Subjective - Subjective Date of Service: 07/26/19 Service Type: [id number] Hosp care 35 min high complexity Subjective: Nursing Report: Patient was visible on unit, no behavioral disturbances reported , slept 4 hours overnight ate meals and went to some groups. CC: " Excellent Patient was seen and evaluated today. Patient was seen before encounter today in her room. The patient reported she is refusing blood pressure readings from the staff because she only wants her body to be read in private practice. Patient is looking forward to family meeting this afternoon. Patient ate meals. Meeting went well and patients family expressed concern that she is not able to engage in her own care in a rational and meaningful way. However patient did allow blood pressure to be taken and took invega and blood pressure medications. Objective - General Observations Appearance: Neat Appears Stated Age: Yes Stature: WNL Posture: WNL Eye Contact: Intense Behavior/Activity: Accelerated - Interaction Observations Attitude Towards Examiner: Mistrustful Stated Mood: Elevated Affect: Bright Speech Pattern/Tone: Rambling Thought Process: Loose Associations Thought Content: Grandiose Thought Process: Lethality: Paranoid Ideation Hallucination Type: Denies Delusion Type: Control - Cognitive Function Orientation: A&O x 4 Level of Consciousness: Awake - Medication Compliance Cooperative with Inpatient Medication Regimen: Partial - Group Participation Participates in Group Activities: Partial Assessment - Assessment Clinical Impression: 54 year old female with history of schizophrenia and medication non- compliance currently having a episode of psychosis and requires admission to the [facility] at [facility]. Plan - Plan Treatment Plan: Name: CHANTAL GRESHAM Birthdate: 1965 [id number] #Q15 minute observation. Today the patient took po invega and anti hypertension medications, vital signs. # The patient requires psychiatric inpatient admission at this time to assure safety, receive treatment and work toward stabilization. # EKG ordered for risk of QT prolongation of antipsychotic medication. # Continue Invega 6mg PO daily for psychosis. # Received Invega 234mg long acting IM 07/25/19 next booster scheduled for 156mg on Monday and next due on 08/22/19 # Family meeting today # [facility] or [facility] depending on patients hospitalization course # Collaboration with Social Work # Court date Monday at 215pm #Goals before discharge include: Psychiatric stabilization Tentative Discharge: Pending psychiatric stabilization Sodium 135 mmol/L (135-145) 07/16/19 03:01 Potassium 3.6 mmol/L (3.5-5.0) 07/16/19 03:01 BUN 11 mg/dL (6-24) 07/16/19 03:01 Creatinine 0.89 mg/dL (0.51-0.95) 07/16/19 03:01 Calcium 9.5 mg/dL (8.6-10.3) 07/16/19 03:01 AST 27 U/L (13-39) 07/16/19 03:01 ALT 23 U/L (7-52) 07/16/19 03:01 Continued Medication Management: Continue Outpt Medication Medications: Current Medications Acetaminophen (Tylenol Tab*) 650 mg PO Q4H PRN PRN Reason: for pain; or Temp >101 F Last Admin: 07/23/19 03:52 Dose: 650 mg Al Hydrox/Mg Hydrox/Simethicone (Maalox Plus*) 30 ml PO Q4H PRN PRN Reason: INDIGESTION Hydrochlorothiazide (Hydrodiuril Tab*) 25 mg PO DAILY [facility] Last Admin: 07/26/19 09:31 Dose: Not Given Lisinopril (Prinivil Tab*) 10 mg PO DAILY [facility] Last Admin: 07/26/19 09:31 Dose: Not Given Multivitamins (Theragran Tab*) 1 tab PO DAILY [facility] Last Admin: 07/26/19 09:31 Dose: Not Given Olanzapine (Zyprexa Tab*) 10 mg PO Q6H PRN PRN Reason: AGITATION Last Admin: 07/17/19 01:59 Dose: 10 mg Paliperidone (Invega Er Tab*) 6 mg PO DAILY [facility] Last Admin: 07/25/19 10:55 Dose: Not Given Paliperidone Palmitate (Invega Sustenna*) 156 mg IM ONCE ONE Stop: 07/29/19 09:01 - Discharge Plan Discharge Plan: Inpatient Hospitalization
[2019-07-26] MEDS: Paliperidone ER TAB* 6 MG TAB.ER PO SCH ×2 (10:48→13:15)
[2019-07-26 16:00] LABS: Albumin 4.2 g/dL (3.2-5.2); Albumin/Globulin Ratio 1.4 (1-3); Calcium 9.3 mg/dL (8.6-10.3); EGFR African American 91.8 (>60); EGFR Non-African American 75.8 (>60); Globulin 3.1 g/dL (2-4); Total Bilirubin 0.3 mg/dL (0.2-1.0); Total Protein 7.3 g/dL (6.4-8.9)
[2019-07-27] MEDS: Hydrochlorothiazide TAB* 25 MG PO SCH (09:35)
[2019-07-27] MEDS: Lisinopril TAB* 10 MG PO SCH (09:35)
[2019-07-27] MEDS: Paliperidone ER TAB* 6 MG TAB.ER PO SCH (09:35)
[2019-07-27] MEDS: Vitamin THERAPEUTIC TAB PO SCH (09:36)
[2019-07-28] MEDS: Lisinopril TAB* 10 MG PO SCH (10:01)
[2019-07-28] MEDS: Paliperidone ER TAB* 6 MG TAB.ER PO SCH (10:01)
[2019-07-28] MEDS: Hydrochlorothiazide TAB* 25 MG PO SCH (10:01)
[2019-07-28] MEDS: Vitamin THERAPEUTIC TAB PO SCH (10:03)
[2019-07-29] MEDS ORDERED: Paliperidone SUSTENNA* 156 MG/1 ML IM ONE (09:00)
[2019-07-29] MEDS: Hydrochlorothiazide TAB* 25 MG PO SCH (09:35)
[2019-07-29] MEDS: Lisinopril TAB* 10 MG PO SCH (09:36)
[2019-07-29] MEDS: Vitamin THERAPEUTIC TAB PO SCH (09:38)
[2019-07-29] MEDS ORDERED: Paliperidone ER TAB* 3 MG TAB.ER PO ONE (10:00)
[2019-07-29] MEDS: Paliperidone ER TAB* 6 MG TAB.ER PO SCH (10:20)
--- NOTE | 2019-07-29 12:04 | PN ---
Subjective - Subjective Date of Service: 07/29/19 Service Type: 41037 Hosp care 35 min high complexity Subjective: Nursing Report: Patient was visible on unit, no behavioral incidents. Slept overnight. Attending group activities. CC: "I took my injection Patient was seen and evaluated today in the common room. When the patient was asked about what is needed to stay out of the hospital she reported visiting her neighbors and having sex once a month, diet and exercise. Patient was cooperative with vital signs today and took her medication. She reported that her dream is to be medication free. Patient has not been excessively drinking water today. She had a neighbor come visit this afternoon. Patient reported that she is tolerating medications without side effects. Objective - General Observations Appearance: Neat Appears Stated Age: Yes Stature: Overweight Posture: Slumped Eye Contact: Intense Behavior/Activity: Accelerated - Interaction Observations Attitude Towards Examiner: Evasive Stated Mood: Expansive Affect: Incongruent Speech Pattern/Tone: Perseverating Thought Process: Loose Associations, [place] Perception: Depersonalization Thought Content: Preoccupation/Ruminations Hallucination Type: Denies Delusion Type: Somatic - Cognitive Function Orientation: A&O x 4 Level of Consciousness: Awake - Medication Compliance Cooperative with Inpatient Medication Regimen: Partial - Group Participation Participates in Group Activities: Partial Assessment - Assessment Merits Inpatient Hospitalization: For Immediate Safety Clinical Impression: 54 year old female with history of schizophrenia and medication non- compliance currently having a episode of psychosis and requires admission to the [facility] at [facility]. Plan - Plan Treatment Plan: Name: CHANTAL GRESHAM Birthdate: 1965 [id number] #Q15 minute observation. the patient continues to delay long acting injection, she has been compliant with anti hypertension medications, vital signs. # The patient requires psychiatric inpatient admission at this time to assure safety, receive treatment and work toward stabilization. 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 Treatment over objection is in the best interest of the patient. #Goals before discharge include: Psychiatric stabilization Tentative Discharge: Pending psychiatric stabilization Sodium 138 mmol/L (135-145) 07/26/19 15:13 Potassium 4.0 mmol/L (3.5-5.0) 07/26/19 15:13 BUN 15 mg/dL (6-24) 07/26/19 15:13 Creatinine 0.79 mg/dL (0.51-0.95) 07/26/19 15:13 Calcium 9.3 mg/dL (8.6-10.3) 07/26/19 15:13 AST 31 U/L (13-39) 07/26/19 15:13 ALT 41 U/L (7-52) 07/26/19 15:13 Continued Medication Management: Continue Outpt Medication Medications: Current Medications Acetaminophen (Tylenol Tab*) 650 mg PO Q4H PRN PRN Reason: for pain; or Temp >101 F Last Admin: 07/23/19 03:52 Dose: 650 mg Al Hydrox/Mg Hydrox/Simethicone (Maalox Plus*) 30 ml PO Q4H PRN PRN Reason: INDIGESTION Hydrochlorothiazide (Hydrodiuril Tab*) 25 mg PO DAILY [facility] Last Admin: 07/29/19 09:35 Dose: 25 mg Lisinopril (Prinivil Tab*) 10 mg PO DAILY [facility] Last Admin: 07/29/19 09:36 Dose: 10 mg Multivitamins (Theragran Tab*) 1 tab PO DAILY [facility] Last Admin: 07/29/19 09:38 Dose: Not Given Olanzapine (Zyprexa Tab*) 10 mg PO Q6H PRN PRN Reason: AGITATION Last Admin: 07/17/19 01:59 Dose: 10 mg Paliperidone (Invega Er Tab*) 6 mg PO DAILY [facility] - Discharge Plan Discharge Plan: Inpatient Hospitalization
[2019-07-30] MEDS ORDERED: Paliperidone ER TAB* 6 MG TAB.ER PO SCH (09:00)
[2019-07-30] MEDS: Vitamin THERAPEUTIC TAB PO SCH (09:15)
[2019-07-30] MEDS: Lisinopril TAB* 10 MG PO SCH (09:15)
[2019-07-30] MEDS: Hydrochlorothiazide TAB* 25 MG PO SCH (09:15)
--- NOTE | 2019-07-31 10:53 | PN ---
Subjective - Subjective Date of Service: 07/31/19 Service Type: [id number] Hosp care 35 min high complexity Subjective: Nursing Report: Patient was visible on unit, intrusive with staff. Attending group activities. CC: "Fantastic Patient was seen and evaluated today in the common room. The patient reported that she plans to take depakote and blood pressure medications when she leaves the hospital. Patient was intrusive with staff. She did not sleep well last night. She reported having adequate appetite. The patient reports attending and participating in day groups. Patient reported that she is tolerating medications without side effects. Objective - General Observations Appearance: Neat Appears Stated Age: Yes Stature: Overweight Posture: Tense Eye Contact: Intense Behavior/Activity: Peculiar - Interaction Observations Attitude Towards Examiner: Ingratiating Stated Mood: Silly Affect: Labile Speech Pattern/Tone: Normal Volume Thought Process: Over Inclusive Perception: WNL Thought Content: Preoccupation/Ruminations Hallucination Type: Denies Delusion Type: Denies - Cognitive Function Orientation: A&O x 4 Level of Consciousness: Awake - Medication Compliance Cooperative with Inpatient Medication Regimen: Yes - Group Participation Participates in Group Activities: Yes Assessment - Assessment Merits Inpatient Hospitalization: For Immediate Safety Clinical Impression: 54 year old female with history of schizophrenia and medication non- compliance currently having a episode of psychosis and requires admission to the [facility] at [facility]. Plan - Plan Treatment Plan: Name: CHANTAL GRESHAM Birthdate: 1965 [id number] #Q30 minute observation. # She has been compliant with anti hypertension medications and at times will refuse vital signs. # The patient requires psychiatric inpatient admission at this time to assure safety, receive treatment and work toward stabilization. # Received Invega 234mg long acting IM 07/25/19 and received 156mg booster today without complication > or equal to 156mg next due on 08/22/19 # Family was contacted and see her twice a week and plan to check in on her more often, they are in agreement with discharge plan, confirmed no history of violence, suicide attempts, and no access to firearms. # ACT referral # Collaboration with Social Work # Court ruled in favor of Treatment over objection # Start depakote 250mg PO BID for mood stabilization #Goals before discharge include: Psychiatric stabilization Tentative Discharge: Monday Sodium 138 mmol/L (135-145) 07/26/19 15:13 Potassium 4.0 mmol/L (3.5-5.0) 07/26/19 15:13 BUN 15 mg/dL (6-24) 07/26/19 15:13 Creatinine 0.79 mg/dL (0.51-0.95) 07/26/19 15:13 Calcium 9.3 mg/dL (8.6-10.3) 07/26/19 15:13 AST 31 U/L (13-39) 07/26/19 15:13 ALT 41 U/L (7-52) 07/26/19 15:13 Continued Medication Management: Continue Outpt Medication Medications: Current Medications Acetaminophen (Tylenol Tab*) 650 mg PO Q4H PRN PRN Reason: for pain; or Temp >101 F Last Admin: 07/23/19 03:52 Dose: 650 mg Al Hydrox/Mg Hydrox/Simethicone (Maalox Plus*) 30 ml PO Q4H PRN PRN Reason: INDIGESTION Hydrochlorothiazide (Hydrodiuril Tab*) 25 mg PO DAILY [facility] Last Admin: 07/30/19 09:15 Dose: 25 mg Lisinopril (Prinivil Tab*) 10 mg PO DAILY [facility] Last Admin: 07/30/19 09:15 Dose: 10 mg Multivitamins (Theragran Tab*) 1 tab PO DAILY [facility] Last Admin: 07/30/19 09:15 Dose: Not Given Olanzapine (Zyprexa Tab*) 10 mg PO Q6H PRN PRN Reason: AGITATION Last Admin: 07/17/19 01:59 Dose: 10 mg Valproic Acid (Depakene Cap(*)) 250 mg PO BID JESSICA - Discharge Plan Discharge Plan: Outpatient Follow Up Outpatient Program: [facility]
[2019-07-31] MEDS: Lisinopril TAB* 10 MG PO SCH (11:55)
[2019-07-31] MEDS: Vitamin THERAPEUTIC TAB PO SCH (11:55)
[2019-07-31] MEDS: Hydrochlorothiazide TAB* 25 MG PO SCH (11:55)
[2019-07-31] MEDS: Valproic Acid CAP(*) 250 MG PO SCH ×2 (13:40→22:08)
--- NOTE | 2019-08-01 12:22 | PN ---
Subjective - Subjective Date of Service: 08/01/19 Service Type: 03167 Hosp care 35 min high complexity Subjective: Nursing Report: Patient was visible on unit, no behavioral incidents. Slept overnight. CC: "I took my medications" Patient was seen and evaluated in the common room. The patient reported that she took medications and vital signs and looks forward to meeting with the ACT team. The patient reported that she had adequate appetite and sleep. The patient looks forward to going outside today. No behavioral issues or overnight events reported. Patient reported that she is tolerating medications without side effects. Objective - General Observations Appearance: Neat Appears Stated Age: Yes Stature: WNL Posture: Slumped Eye Contact: Average Behavior/Activity: Accelerated, Peculiar - Interaction Observations Attitude Towards Examiner: Cooperative Stated Mood: Elevated Affect: Restricted Speech Pattern/Tone: Normal Volume Thought Process: Loose Associations Perception: WNL Thought Content: WNL Hallucination Type: None Delusion Type: None - Cognitive Function Orientation: A&O x 4 Level of Consciousness: Awake - Medication Compliance Cooperative with Inpatient Medication Regimen: Yes - Group Participation Participates in Group Activities: Yes Assessment - Assessment Merits Inpatient Hospitalization: For Immediate Safety Clinical Impression: 54 year old female with history of schizophrenia and medication non- compliance currently having a episode of psychosis and requires admission to the [facility] at [facility]. Plan - Plan Treatment Plan: Name: CHANTAL GRESHAM Birthdate: 1965 [id number] # Q30 minute observation and staff pass # She has been compliant with anti hypertension medications and at times will refuse vital signs. # The patient requires psychiatric inpatient admission at this time to assure safety, receive treatment and work toward stabilization. # Received Invega 234mg long acting IM 07/25/19 and received 156mg booster today without complication > or equal to 156mg next due on 08/22/19 # Family was contacted and see her twice a week and plan to check in on her more often, they are in agreement with discharge plan, confirmed no history of violence, suicide attempts, and no access to firearms. # ACT team plans to evaluate patient this afternoon. # Collaboration with Social Work # Court ruled in favor of Treatment over objection # Depakote 250mg PO BID for mood stabilization #Goals before discharge include: Psychiatric stabilization Tentative Discharge: Monday Sodium 138 mmol/L (135-145) 07/26/19 15:13 Potassium 4.0 mmol/L (3.5-5.0) 07/26/19 15:13 BUN 15 mg/dL (6-24) 07/26/19 15:13 Creatinine 0.79 mg/dL (0.51-0.95) 07/26/19 15:13 Calcium 9.3 mg/dL (8.6-10.3) 07/26/19 15:13 AST 31 U/L (13-39) 07/26/19 15:13 ALT 41 U/L (7-52) 07/26/19 15:13 Continued Medication Management: Continue Outpt Medication Medications: Current Medications Acetaminophen (Tylenol Tab*) 650 mg PO Q4H PRN PRN Reason: for pain; or Temp >101 F Last Admin: 07/23/19 03:52 Dose: 650 mg Al Hydrox/Mg Hydrox/Simethicone (Maalox Plus*) 30 ml PO Q4H PRN PRN Reason: INDIGESTION Hydrochlorothiazide (Hydrodiuril Tab*) 25 mg PO DAILY [facility] Last Admin: 07/31/19 11:55 Dose: 25 mg Lisinopril (Prinivil Tab*) 10 mg PO DAILY [facility] Last Admin: 07/31/19 11:55 Dose: 10 mg Multivitamins (Theragran Tab*) 1 tab PO DAILY [facility] Last Admin: 07/31/19 11:55 Dose: 1 tab Olanzapine (Zyprexa Tab*) 10 mg PO Q6H PRN PRN Reason: AGITATION Last Admin: 07/17/19 01:59 Dose: 10 mg Valproic Acid (Depakene Cap(*)) 250 mg PO BID [facility] Last Admin: 07/31/19 22:08 Dose: 250 mg - Discharge Plan Discharge Plan: Inpatient Hospitalization Outpatient Program: ACT
[2019-08-01] MEDS: Valproic Acid CAP(*) 250 MG PO SCH ×2 (12:33→22:01)
--- NOTE | 2019-08-01 13:04 | PN ---
BSU: Group Therapy Note - Service Type Service Type: 66625 Group Psychotherapy - Cognitive Behavioral Group Note: Katya was difficult in cbt programming this morning, interacting in a somewhat hostile fashion and interrupting clinical discusssion with an elevated tone. She impressed as angry, but remained in good behavioral control. She tends to laugh loudly and for long periods of time when things just aren't that funny. She was also somewhat hostile with peers and dismissive of efforts to engage in relevant subject matter.
[2019-08-01] MEDS: Hydrochlorothiazide TAB* 25 MG PO SCH (13:13)
[2019-08-01] MEDS: Lisinopril TAB* 10 MG PO SCH (13:13)
[2019-08-01] MEDS: Vitamin THERAPEUTIC TAB PO SCH (13:13)
--- NOTE | 2019-08-02 12:06 | PN ---
Subjective - Subjective Date of Service: 08/02/19 Service Type: 60795 Hosp care 35 min high complexity Subjective: Nursing Report: Patient was visible on unit, made inappropriate remarks to staff , Slept 3 hours CC: "I do not want to work with ACT" Patient was seen and evaluated in the common room. The patient reported that she does not want to work with the ACT team. She met with the ACT team and told them that she rather work with [facility]. The patient reported that she had adequate appetite. The patient made sexually inappropriate remarks to staff members. Patient reported that she is tolerating medications without side effects. Objective - General Observations Appearance: Disheveled Appears Stated Age: Yes Stature: Overweight Posture: Slumped Eye Contact: Intense Behavior/Activity: Peculiar - Interaction Observations Attitude Towards Examiner: Demanding Stated Mood: Elevated Affect: Restricted Speech Pattern/Tone: Perseverating Thought Process: Loose Associations Perception: WNL Thought Content: Grandiose Hallucination Type: None Delusion Type: Erotic - Cognitive Function Orientation: A&O x 4 Level of Consciousness: Awake Judgment Within Normal Limits: No Ability to Make Reasonable Decisions: Serverely Impaired - Medication Compliance Cooperative with Inpatient Medication Regimen: Partial - Group Participation Participates in Group Activities: Partial Assessment - Assessment Merits Inpatient Hospitalization: For Immediate Safety Clinical Impression: 54 year old female with history of schizophrenia and medication non- compliance currently having a episode of psychosis and requires admission to the BSU at [facility]. Plan - Plan Treatment Plan: Name: CHANTAL GRESHAM Birthdate: 1965 [id number] # Q30 minute observation and staff pass # The patient requires psychiatric inpatient admission at this time to assure safety, receive treatment and work toward stabilization. # Received Invega 234mg long acting IM 07/25/19 and received 156mg booster today without complication > or equal to 156mg next due on 08/22/19 # ACT team evaluated the patient and she placed multiple barriers in working with the ACT team # Collaboration with Social Work # Court ruled in favor of Treatment over objection # Patients mental state interferers with engaging with supportive outpatient resources such as ACT, She will require state hospitalization for further stabilization. #State hospital referral # Depakote 250mg PO BID for mood stabilization #Goals : Psychiatric stabilization Tentative Discharge: Pending State hospitalization Sodium 138 mmol/L (135-145) 07/26/19 15:13 Potassium 4.0 mmol/L (3.5-5.0) 07/26/19 15:13 BUN 15 mg/dL (6-24) 07/26/19 15:13 Creatinine 0.79 mg/dL (0.51-0.95) 07/26/19 15:13 Calcium 9.3 mg/dL (8.6-10.3) 07/26/19 15:13 AST 31 U/L (13-39) 07/26/19 15:13 ALT 41 U/L (7-52) 07/26/19 15:13 Continued Medication Management: Continue Outpt Medication Medications: Current Medications Acetaminophen (Tylenol Tab*) 650 mg PO Q4H PRN PRN Reason: for pain; or Temp >101 F Last Admin: 07/23/19 03:52 Dose: 650 mg Al Hydrox/Mg Hydrox/Simethicone (Maalox Plus*) 30 ml PO Q4H PRN PRN Reason: INDIGESTION Hydrochlorothiazide (Hydrodiuril Tab*) 25 mg PO DAILY [facility] Last Admin: 08/01/19 13:13 Dose: Not Given Lisinopril (Prinivil Tab*) 10 mg PO DAILY [facility] Last Admin: 08/01/19 13:13 Dose: Not Given Multivitamins (Theragran Tab*) 1 tab PO DAILY [facility] Last Admin: 08/01/19 13:13 Dose: Not Given Olanzapine (Zyprexa Tab*) 10 mg PO Q6H PRN PRN Reason: AGITATION Last Admin: 07/17/19 01:59 Dose: 10 mg Valproic Acid (Depakene Cap(*)) 250 mg PO BID [facility] Last Admin: 08/01/19 22:01 Dose: 250 mg - Discharge Plan Discharge Plan: Consider Longer Term Tx
[2019-08-02] MEDS: Hydrochlorothiazide TAB* 25 MG PO SCH (14:51)
[2019-08-02] MEDS: Lisinopril TAB* 10 MG PO SCH (14:51)
[2019-08-02] MEDS: Valproic Acid CAP(*) 250 MG PO SCH ×2 (14:52→21:29)
[2019-08-02] MEDS: Vitamin THERAPEUTIC TAB PO SCH (14:52)
[2019-08-03] MEDS: Vitamin THERAPEUTIC TAB PO SCH (09:15)
[2019-08-03] MEDS: Hydrochlorothiazide TAB* 25 MG PO SCH (09:15)
[2019-08-03] MEDS: Lisinopril TAB* 10 MG PO SCH (09:15)
[2019-08-03] MEDS: Valproic Acid CAP(*) 250 MG PO SCH ×2 (09:15→22:01)
[2019-08-04] MEDS: Hydrochlorothiazide TAB* 25 MG PO SCH (09:12)
[2019-08-04] MEDS: Lisinopril TAB* 10 MG PO SCH (09:12)
[2019-08-04] MEDS: Valproic Acid CAP(*) 250 MG PO SCH ×2 (09:12→21:20)
[2019-08-04] MEDS: Vitamin THERAPEUTIC TAB PO SCH (09:12)
--- NOTE | 2019-08-05 11:20 | PN ---
BSU: Group Therapy Note - Service Type Service Type: 32165 Group Psychotherapy - Cognitive Behavioral Group Therapy ( CBT):Patient presented in CBT programming as disorganized and disruptive in discussion and needed repeated redirection to attend to presented materials.
--- NOTE | 2019-08-05 11:46 | PN ---
Subjective - Subjective Date of Service: 08/05/19 Service Type: 25388 Hosp care 35 min high complexity Subjective: Nursing Report: Patient was visible on unit, disruptive and acting out over the weekend CC: "Ok that is excellent" Patient was seen and evaluated in the common room. The patient was informed that she will be referred to the [facility]. Her response was " that is excellent." Patient took trash bags from cleaning service staff cart licking plate declined vital signs. Patient intrusive to others on the unit. The patient reported that she had adequate appetite. Patient reported that she is tolerating medications without side effects. Objective - General Observations Appearance: Disheveled Appears Stated Age: Yes Stature: Overweight Posture: Slumped Eye Contact: Intense Behavior/Activity: Accelerated - Interaction Observations Attitude Towards Examiner: Dismissive Stated Mood: Elevated Affect: Incongruent Speech Pattern/Tone: Inappropriate Thought Process: Loose Associations Perception: WNL Thought Content: Preoccupation/Ruminations Hallucination Type: Denies Delusion Type: Control - Cognitive Function Orientation: A&O x 4 Level of Consciousness: Awake Ability to Make Reasonable Decisions: Serverely Impaired - Medication Compliance Cooperative with Inpatient Medication Regimen: No - Group Participation Participates in Group Activities: No Assessment - Assessment Merits Inpatient Hospitalization: For Immediate Safety Clinical Impression: 54 year old female with history of schizophrenia and medication non- compliance currently having a episode of psychosis and requires admission to the BSU at [facility]. Plan - Plan Treatment Plan: Name: CHANTAL GRESHAM Birthdate: 1965 [id number] # Q15 minute observation # The patient requires psychiatric inpatient admission at this time to assure safety, receive treatment and work toward stabilization. # Received Invega 234mg long acting IM 07/25/19 and received 156mg booster today without complication > or equal to 156mg next due on 08/22/19 # ACT team evaluated the patient and patient set multiple barriers in working with the ACT team # Collaboration with Social Work # Court ruled in favor of Treatment over objection # Patients mental state interferers with engaging with supportive outpatient resources such as ACT, She will require state hospitalization for further stabilization. #[facility] hospital referral # Depakote 500mg PO BID for mood stabilization and valproic acid level #Goals : Psychiatric stabilization Tentative Discharge: Pending State hospitalization Sodium 138 mmol/L (135-145) 07/26/19 15:13 Potassium 4.0 mmol/L (3.5-5.0) 07/26/19 15:13 BUN 15 mg/dL (6-24) 07/26/19 15:13 Creatinine 0.79 mg/dL (0.51-0.95) 07/26/19 15:13 Calcium 9.3 mg/dL (8.6-10.3) 07/26/19 15:13 AST 31 U/L (13-39) 07/26/19 15:13 ALT 41 U/L (7-52) 07/26/19 15:13 Continued Medication Management: Start Medication Medications: Current Medications Acetaminophen (Tylenol Tab*) 650 mg PO Q4H PRN PRN Reason: for pain; or Temp >101 F Last Admin: 07/23/19 03:52 Dose: 650 mg Al Hydrox/Mg Hydrox/Simethicone (Maalox Plus*) 30 ml PO Q4H PRN PRN Reason: INDIGESTION Hydrochlorothiazide (Hydrodiuril Tab*) 25 mg PO DAILY [facility] Last Admin: 08/04/19 09:12 Dose: Not Given Lisinopril (Prinivil Tab*) 10 mg PO DAILY [facility] Last Admin: 08/04/19 09:12 Dose: Not Given Multivitamins (Theragran Tab*) 1 tab PO DAILY [facility] Last Admin: 08/04/19 09:12 Dose: Not Given Olanzapine (Zyprexa Tab*) 10 mg PO Q6H PRN PRN Reason: AGITATION Last Admin: 07/17/19 01:59 Dose: 10 mg Valproic Acid (Depakene Cap(*)) 250 mg PO BID [facility] Last Admin: 08/04/19 21:20 Dose: Not Given - Discharge Plan Discharge Plan: Consider Longer Term Tx
[2019-08-05] MEDS: Hydrochlorothiazide TAB* 25 MG PO SCH (13:02)
[2019-08-05] MEDS: Lisinopril TAB* 10 MG PO SCH (13:02)
[2019-08-05] MEDS: Vitamin THERAPEUTIC TAB PO SCH (13:02)
[2019-08-05] MEDS: Valproic Acid CAP(*) 250 MG PO SCH ×2 (14:17→22:20)
[2019-08-06] MEDS: Valproic Acid CAP(*) 250 MG PO SCH ×2 (08:41→21:59)
[2019-08-06] MEDS: Vitamin THERAPEUTIC TAB PO SCH (08:41)
[2019-08-06] MEDS: Lisinopril TAB* 10 MG PO SCH (08:41)
[2019-08-06] MEDS: Hydrochlorothiazide TAB* 25 MG PO SCH (08:41)
--- NOTE | 2019-08-06 12:51 | PN ---
Subjective - Subjective Date of Service: 08/06/19 Service Type: 02341 Hosp care 35 min high complexity Subjective: Patient was disruptive and disorganized, slept for 3 hours, declined vital signs and has not been going to groups Objective - General Observations Appearance: Disheveled Appears Stated Age: Yes Stature: Overweight Posture: Slumped Eye Contact: Intense Behavior/Activity: Accelerated - Interaction Observations Attitude Towards Examiner: Defensive Stated Mood: Expansive Affect: Restricted Speech Pattern/Tone: Perseverating Thought Process: Flight of Ideas Perception: WNL Thought Content: Preoccupation/Ruminations Hallucination Type: None Delusion Type: Thought Broadcasting - Cognitive Function Orientation: A&O x 4 Level of Consciousness: Awake Ability to Make Reasonable Decisions: Serverely Impaired - Medication Compliance Cooperative with Inpatient Medication Regimen: No - Group Participation Participates in Group Activities: No Assessment - Assessment Clinical Impression: 54 year old female with history of schizophrenia and medication non- compliance currently having a episode of psychosis and requires admission to the BSU at [facility]. Plan - Plan Treatment Plan: Name: CHANTAL GRESHAM Birthdate: 1965 [id number] # Q15 minute observation # The patient requires psychiatric inpatient admission at this time to assure safety, receive treatment and work toward stabilization. # Received Invega 234mg long acting IM 07/25/19 and received 156mg booster today without complication > or equal to 156mg next due on 08/22/19 # ACT team evaluated the patient and patient set multiple barriers in working with the ACT team # Collaboration with Social Work # Court ruled in favor of Treatment over objection # Patients mental state interferers with engaging with supportive outpatient resources such as ACT, She will require state hospitalization for further stabilization. #State hospital referral completed # Depakote 500mg PO BID for mood stabilization and valproic acid level #Goals : Psychiatric stabilization Tentative Discharge: Pending State hospitalization Sodium 138 mmol/L (135-145) 07/26/19 15:13 Potassium 4.0 mmol/L (3.5-5.0) 07/26/19 15:13 BUN 15 mg/dL (6-24) 07/26/19 15:13 Creatinine 0.79 mg/dL (0.51-0.95) 07/26/19 15:13 Calcium 9.3 mg/dL (8.6-10.3) 07/26/19 15:13 AST 31 U/L (13-39) 07/26/19 15:13 ALT 41 U/L (7-52) 07/26/19 15:13 Continued Medication Management: Continue Outpt Medication Medications: Current Medications Acetaminophen (Tylenol Tab*) 650 mg PO Q4H PRN PRN Reason: for pain; or Temp >101 F Last Admin: 07/23/19 03:52 Dose: 650 mg Al Hydrox/Mg Hydrox/Simethicone (Maalox Plus*) 30 ml PO Q4H PRN PRN Reason: INDIGESTION Hydrochlorothiazide (Hydrodiuril Tab*) 25 mg PO DAILY [facility] Last Admin: 08/06/19 08:41 Dose: Not Given Lisinopril (Prinivil Tab*) 10 mg PO DAILY [facility] Last Admin: 08/06/19 08:41 Dose: Not Given Multivitamins (Theragran Tab*) 1 tab PO DAILY [facility] Last Admin: 08/06/19 08:41 Dose: Not Given Olanzapine (Zyprexa Tab*) 10 mg PO Q6H PRN PRN Reason: AGITATION Last Admin: 07/17/19 01:59 Dose: 10 mg Valproic Acid (Depakene Cap(*)) 500 mg PO BID [facility] Last Admin: 08/06/19 08:41 Dose: Not Given - Discharge Plan Discharge Plan: Consider Longer Term Tx
[2019-08-07] MEDS: Hydrochlorothiazide TAB* 25 MG PO SCH (10:13)
[2019-08-07] MEDS: Lisinopril TAB* 10 MG PO SCH (10:13)
[2019-08-07] MEDS: Valproic Acid CAP(*) 250 MG PO SCH ×2 (10:13→20:29)
[2019-08-07] MEDS: Vitamin THERAPEUTIC TAB PO SCH (10:14)
--- NOTE | 2019-08-07 10:58 | PN ---
Subjective - Subjective Date of Service: 08/07/19 Service Type: 60541 Hosp care 35 min high complexity Subjective: Nursing Report: Patient was visible on unit, disorganized, moving chairs around and refusing vital signs. CC: "I would like that very much" Patient was seen and evaluated in the common room. The patient attended the administrative hearing stating that the [facility] a [facility] of healing. She expressed that she would need outerwear and she instructed that she would be provided with that upon her transfer. Patient refusing labs. Objective - General Observations Appearance: Disheveled Appears Stated Age: Yes Stature: Overweight Posture: Slumped Eye Contact: Average Behavior/Activity: Peculiar - Interaction Observations Attitude Towards Examiner: Confused Stated Mood: Elevated Affect: Restricted Speech Pattern/Tone: Garbled Thought Process: Loose Associations, Over Inclusive Perception: Derealization Thought Content: Preoccupation/Ruminations Hallucination Type: Denies Delusion Type: Control - Cognitive Function Orientation: A&O x 4 Level of Consciousness: Awake - Medication Compliance Cooperative with Inpatient Medication Regimen: Partial - Group Participation Participates in Group Activities: Partial Assessment - Assessment Merits Inpatient Hospitalization: For Immediate Safety Clinical Impression: 54 year old female with history of schizophrenia and medication non- compliance currently having a episode of psychosis and requires admission to the B[facility] at [facility]. Plan - Plan Treatment Plan: Name: CHANTAL GRESHAM Birthdate: 1965 [id number] # Q15 minute observation # The patient requires psychiatric inpatient admission at this time to assure safety, receive treatment and work toward stabilization. # Received Invega 234mg long acting IM 07/25/19 and received 156mg booster today without complication > or equal to 156mg next due on 08/22/19 # Attempt was made to set up care with the ACT team however the patient was to disorganized to participate and it was determined that she requires further stabilization. # Collaboration with Social Work # Court ruled in favor of Treatment over objection # Patients mental state interferers with engaging with supportive outpatient resources such as ACT, She will require state hospitalization for further stabilization. #State hospital referral completed awaiting response # Administrative hearing completed and ruled in favor of transfer to [facility] # Depakote 500mg PO BID for mood stabilization and valproic acid level #Goals : Psychiatric stabilization Tentative Discharge: Pending State hospitalization Sodium 138 mmol/L (135-145) 07/26/19 15:13 Potassium 4.0 mmol/L (3.5-5.0) 07/26/19 15:13 BUN 15 mg/dL (6-24) 07/26/19 15:13 Creatinine 0.79 mg/dL (0.51-0.95) 07/26/19 15:13 Calcium 9.3 mg/dL (8.6-10.3) 07/26/19 15:13 AST 31 U/L (13-39) 07/26/19 15:13 ALT 41 U/L (7-52) 07/26/19 15:13 Continued Medication Management: Continue Outpt Medication Medications: Current Medications Acetaminophen (Tylenol Tab*) 650 mg PO Q4H PRN PRN Reason: for pain; or Temp >101 F Last Admin: 07/23/19 03:52 Dose: 650 mg Al Hydrox/Mg Hydrox/Simethicone (Maalox Plus*) 30 ml PO Q4H PRN PRN Reason: INDIGESTION Hydrochlorothiazide (Hydrodiuril Tab*) 25 mg PO DAILY [facility] Last Admin: 08/07/19 10:13 Dose: Not Given Lisinopril (Prinivil Tab*) 10 mg PO DAILY [facility] Last Admin: 08/07/19 10:13 Dose: Not Given Multivitamins (Theragran Tab*) 1 tab PO DAILY [facility] Last Admin: 08/07/19 10:14 Dose: Not Given Olanzapine (Zyprexa Tab*) 10 mg PO Q6H PRN PRN Reason: AGITATION Last Admin: 07/17/19 01:59 Dose: 10 mg Valproic Acid (Depakene Cap(*)) 500 mg PO BID [facility] Last Admin: 08/07/19 10:13 Dose: Not Given - Discharge Plan Discharge Plan: Inpatient Hospitalization
[2019-08-08] MEDS: Valproic Acid CAP(*) 250 MG PO SCH ×2 (10:42→21:34)
[2019-08-08] MEDS: Lisinopril TAB* 10 MG PO SCH (10:42)
[2019-08-08] MEDS: Vitamin THERAPEUTIC TAB PO SCH (10:42)
[2019-08-08] MEDS: Hydrochlorothiazide TAB* 25 MG PO SCH (10:42)
[2019-08-09] MEDS: Hydrochlorothiazide TAB* 25 MG PO SCH (09:00)
[2019-08-09] MEDS: Lisinopril TAB* 10 MG PO SCH (09:00)
[2019-08-09] MEDS: Valproic Acid CAP(*) 250 MG PO SCH ×2 (09:00→21:18)
[2019-08-09] MEDS: Vitamin THERAPEUTIC TAB PO SCH (09:00)
[2019-08-09 09:57] VITALS: BP 176/94
--- NOTE | 2019-08-09 14:30 | PN ---
Subjective - Subjective Date of Service: 08/09/19 Service Type: [id number] Hosp care 15 min low complexity Subjective: Chantal continues to present with intense stare, intrusiveness to peers and staff and irritability. She continues to refuse medications or nursing assessments. 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 Please see well documented notes from staff depicting her intrusive and agitated behavior. Per , patient is awaiting referral review by [facility]. Objective - General Observations Appearance: Well Groomed Stature: Overweight Posture: Tense Eye Contact: Intense Behavior/Activity: Accelerated, Peculiar, Impulsive, Agitated - Interaction Observations Attitude Towards Examiner: Defensive, Demanding, Dismissive Stated Mood: Elevated Affect: Full Speech Pattern/Tone: Loud Volume Thought Process: Disorganized, Over Inclusive Perception: WNL Thought Content: Paranoid, Grandiose Thought Process: Lethality: Paranoid Ideation Hallucination Type: Denies Delusion Type: Control, Grandeur - Cognitive Function Orientation: A&O x 4 Level of Consciousness: Alert Cognition: Impaired Attention/Concentration Estimated Intelligence: Normal Insight: Difficulty Acknowledging Presence of Psyciatric Problems Judgment Within Normal Limits: No Ability to Make Reasonable Decisions: Serverely Impaired - Medication Compliance Cooperative with Inpatient Medication Regimen: No - Group Participation Participates in Group Activities: No Assessment - Assessment Merits Inpatient Hospitalization: For Immediate Safety, For Stabilization Inpatient DSM-V Dx: F20.9 Clinical Impression: 54 year old female with history of schizophrenia and medication non- compliance currently having a episode of psychosis and requires admission to the BSU at [facility]. Plan - Plan Treatment Plan: Name: CHANTAL GRESHAM Birthdate: 1965 [id number] # Q15 minute observation # The patient requires psychiatric inpatient admission at this time to assure safety, receive treatment and work toward stabilization. # Received Invega 234mg long acting IM 07/25/19 and received 156mg booster today without complication > or equal to 156mg next due on 08/22/19 # Attempt was made to set up care with the ACT team however the patient was to disorganized to participate and it was determined that she requires further stabilization. # Collaboration with Social Work # Court ruled in favor of Treatment over objection # Patients mental state interferers with engaging with supportive outpatient resources such as ACT, She will require state hospitalization for further stabilization. #State hospital referral completed awaiting response # Administrative hearing completed and ruled in favor of transfer to [facility] # Depakote 500mg PO BID for mood stabilization and valproic acid level #Goals : Psychiatric stabilization Tentative Discharge: Pending State hospitalization Sodium 138 mmol/L (135-145) 07/26/19 15:13 Potassium 4.0 mmol/L (3.5-5.0) 07/26/19 15:13 BUN 15 mg/dL (6-24) 07/26/19 15:13 Creatinine 0.79 mg/dL (0.51-0.95) 07/26/19 15:13 Calcium 9.3 mg/dL (8.6-10.3) 07/26/19 15:13 AST 31 U/L (13-39) 07/26/19 15:13 ALT 41 U/L (7-52) 07/26/19 15:13 Medications: Current Medications Acetaminophen (Tylenol Tab*) 650 mg PO Q4H PRN PRN Reason: for pain; or Temp >101 F Last Admin: 07/23/19 03:52 Dose: 650 mg Al Hydrox/Mg Hydrox/Simethicone (Maalox Plus*) 30 ml PO Q4H PRN PRN Reason: INDIGESTION Hydrochlorothiazide (Hydrodiuril Tab*) 25 mg PO DAILY [facility] Last Admin: 08/09/19 09:00 Dose: Not Given Lisinopril (Prinivil Tab*) 10 mg PO DAILY [facility] Last Admin: 08/09/19 09:00 Dose: Not Given Multivitamins (Theragran Tab*) 1 tab PO DAILY [facility] Last Admin: 08/09/19 09:00 Dose: Not Given Olanzapine (Zyprexa Tab*) 10 mg PO Q6H PRN PRN Reason: AGITATION Last Admin: 07/17/19 01:59 Dose: 10 mg Valproic Acid (Depakene Cap(*)) 500 mg PO BID [facility] Last Admin: 08/09/19 09:00 Dose: Not Given - Discharge Plan Discharge Plan: Consider Longer Term Tx
[2019-08-10] MEDS: Hydrochlorothiazide TAB* 25 MG PO SCH (11:13)
[2019-08-10] MEDS: Valproic Acid CAP(*) 250 MG PO SCH ×2 (11:14→21:13)
[2019-08-10] MEDS: Vitamin THERAPEUTIC TAB PO SCH (11:14)
[2019-08-10] MEDS: Lisinopril TAB* 10 MG PO SCH (11:14)
[2019-08-11] MEDS: Lisinopril TAB* 10 MG PO SCH (08:52)
[2019-08-11] MEDS: Hydrochlorothiazide TAB* 25 MG PO SCH (08:52)
[2019-08-11] MEDS: Valproic Acid CAP(*) 250 MG PO SCH ×2 (08:52→19:41)
[2019-08-11] MEDS: Vitamin THERAPEUTIC TAB PO SCH (08:52)
[2019-08-12] MEDS: Vitamin THERAPEUTIC TAB PO SCH (09:29)
[2019-08-12] MEDS: Lisinopril TAB* 10 MG PO SCH (09:29)
[2019-08-12] MEDS: Valproic Acid CAP(*) 250 MG PO SCH ×2 (09:29→21:47)
[2019-08-12] MEDS: Hydrochlorothiazide TAB* 25 MG PO SCH (09:29)
--- NOTE | 2019-08-12 10:17 | PN ---
Subjective - Subjective Date of Service: 08/12/19 Service Type: [id number] Hosp care 35 min high complexity Subjective: Nursing Report: Patient was visible on unit, patient disruptive and harassing other peers CC: "I do not need medication Patient was seen and evaluated today in the common room. The patient has been harassing other peers on the unit. She slept 3 hours. Patient has been refusing vital signs and medications. Knocking on doors and excessively calling people on the phone including the police department. Objective - General Observations Appearance: Disheveled Appears Stated Age: Yes Stature: Overweight Posture: Tense Eye Contact: Intense Behavior/Activity: Peculiar - Interaction Observations Attitude Towards Examiner: Evasive Stated Mood: Expansive Affect: Restricted Speech Pattern/Tone: Rambling Thought Process: Flight of Ideas Perception: Derealization Thought Content: Preoccupation/Ruminations Hallucination Type: Denies Delusion Type: Erotic - Cognitive Function Orientation: A&O x 4 Level of Consciousness: Awake Ability to Make Reasonable Decisions: Serverely Impaired - Medication Compliance Cooperative with Inpatient Medication Regimen: No - Group Participation Participates in Group Activities: No Assessment - Assessment Merits Inpatient Hospitalization: For Immediate Safety Inpatient DSM-V Dx: F20.9 Clinical Impression: 54 year old female with history of schizophrenia and medication non- compliance currently having a episode of psychosis and requires admission to the BSU at [facility]. Plan - Plan Treatment Plan: Name: CHANTAL GRESHAM Birthdate: 1965 [id number] # Q15 minute observation # The patient requires psychiatric inpatient admission at this time to assure safety, receive treatment and work toward stabilization. # Received Invega 234mg long acting IM 07/25/19 and received 156mg booster today without complication > or equal to 156mg next due on 08/22/19 # Attempt was made to set up care with the ACT team however the patient was to disorganized to participate and it was determined that she requires further stabilization. # Collaboration with Social Work # Court ruled in favor of Treatment over objection # Patients mental state interferers with engaging with supportive outpatient resources such as ACT, She will require state hospitalization for further stabilization. #State hospital referral completed awaiting response # Administrative hearing completed and ruled in favor of transfer to [facility] # Patient not a good clozapine candidate due to non compliance with blood draws # Restrict phone access at staff discretion. # Depakote 500mg PO BID for mood stabilization and valproic acid level #Goals : Psychiatric stabilization Tentative Discharge: Pending State hospitalization Sodium 138 mmol/L (135-145) 07/26/19 15:13 Potassium 4.0 mmol/L (3.5-5.0) 07/26/19 15:13 BUN 15 mg/dL (6-24) 07/26/19 15:13 Creatinine 0.79 mg/dL (0.51-0.95) 07/26/19 15:13 Calcium 9.3 mg/dL (8.6-10.3) 07/26/19 15:13 AST 31 U/L (13-39) 07/26/19 15:13 ALT 41 U/L (7-52) 07/26/19 15:13 Continued Medication Management: Continue Outpt Medication Medications: Current Medications Acetaminophen (Tylenol Tab*) 650 mg PO Q4H PRN PRN Reason: for pain; or Temp >101 F Last Admin: 07/23/19 03:52 Dose: 650 mg Al Hydrox/Mg Hydrox/Simethicone (Maalox Plus*) 30 ml PO Q4H PRN PRN Reason: INDIGESTION Hydrochlorothiazide (Hydrodiuril Tab*) 25 mg PO DAILY [facility] Last Admin: 08/12/19 09:29 Dose: Not Given Lisinopril (Prinivil Tab*) 10 mg PO DAILY [facility] Last Admin: 08/12/19 09:29 Dose: Not Given Multivitamins (Theragran Tab*) 1 tab PO DAILY [facility] Last Admin: 08/12/19 09:29 Dose: Not Given Olanzapine (Zyprexa Tab*) 10 mg PO Q6H PRN PRN Reason: AGITATION Last Admin: 07/17/19 01:59 Dose: 10 mg Valproic Acid (Depakene Cap(*)) 500 mg PO BID [facility] Last Admin: 08/12/19 09:29 Dose: Not Given - Discharge Plan Discharge Plan: Inpatient Hospitalization
[2019-08-12] MEDS: OLANzapine TAB* 10 MG PO PRN (10:47)
[2019-08-13] MEDS: OLANzapine TAB* 10 MG PO PRN ×2 (08:09→14:00)
[2019-08-13] MEDS: Hydrochlorothiazide TAB* 25 MG PO SCH (08:20)
[2019-08-13] MEDS: Lisinopril TAB* 10 MG PO SCH (08:20)
[2019-08-13] MEDS: Valproic Acid CAP(*) 250 MG PO SCH ×2 (08:20→21:07)
[2019-08-13] MEDS: Vitamin THERAPEUTIC TAB PO SCH (08:20)
--- NOTE | 2019-08-13 09:44 | PN ---
Subjective - Subjective Date of Service: 08/13/19 Service Type: [id number] Hosp care 35 min high complexity Subjective: Nursing Report: Patient was visible on unit, patient unable to follow re- direction, received prns CC: "I do not want medications Patient was seen and evaluated today in the common room. The patient ripped up another peers papers and has been refusing vital signs and medications. Patient harassing other peers on the unit. Objective - General Observations Appearance: Disheveled Appears Stated Age: Yes Stature: Overweight Posture: Slumped Eye Contact: Avoidant Behavior/Activity: Peculiar - Interaction Observations Attitude Towards Examiner: Uncooperative Attitude Towards Parent/Guardian: Demanding Stated Mood: Elevated Affect: Restricted Speech Pattern/Tone: Clear Thought Process: Loose Associations Perception: Depersonalization Thought Content: Preoccupation/Ruminations Hallucination Type: Denies Delusion Type: Thought Insertion - Cognitive Function Orientation: A&O x 4 Level of Consciousness: Awake Ability to Make Reasonable Decisions: Serverely Impaired - Medication Compliance Cooperative with Inpatient Medication Regimen: No - Group Participation Participates in Group Activities: No Assessment - Assessment Merits Inpatient Hospitalization: For Immediate Safety Inpatient DSM-V Dx: F20.9 Clinical Impression: 54 year old female with history of schizophrenia and medication non- compliance currently having a episode of psychosis and requires admission to the B[facility] at [facility]. Plan - Plan Treatment Plan: Name: CHANTAL GRESHAM Birthdate: 1965 [id number] # Q15 minute observation. # The patient requires psychiatric inpatient admission at this time to assure safety, receive treatment and work toward stabilization. # Received Invega 234mg long acting IM 07/25/19 and received 156mg booster today without complication > or equal to 156mg next due on 08/22/19 # Attempt was made to set up care with the ACT team however the patient was to disorganized to participate with ACT services. # Collaboration with Social Work # Court ruled in favor of Treatment over objection #[facility] referral accepted and awaiting bed availability # Administrative hearing completed and ruled in favor of transfer to [facility] # Patient not a good clozapine candidate due to non compliance with blood draws # Restrict phone access at staff discretion. # Depakote 500mg PO BID for mood stabilization and valproic acid level # Court ordered treatment- If patient refuses po depakote will give zyprexa IM #Goals : Psychiatric stabilization Tentative Discharge: Pending bed availability at [facility] Sodium 138 mmol/L (135-145) 07/26/19 15:13 Potassium 4.0 mmol/L (3.5-5.0) 07/26/19 15:13 BUN 15 mg/dL (6-24) 07/26/19 15:13 Creatinine 0.79 mg/dL (0.51-0.95) 07/26/19 15:13 Calcium 9.3 mg/dL (8.6-10.3) 07/26/19 15:13 AST 31 U/L (13-39) 07/26/19 15:13 ALT 41 U/L (7-52) 07/26/19 15:13 Continued Medication Management: Start Medication Medications: Current Medications Acetaminophen (Tylenol Tab*) 650 mg PO Q4H PRN PRN Reason: for pain; or Temp >101 F Last Admin: 07/23/19 03:52 Dose: 650 mg Al Hydrox/Mg Hydrox/Simethicone (Maalox Plus*) 30 ml PO Q4H PRN PRN Reason: INDIGESTION Hydrochlorothiazide (Hydrodiuril Tab*) 25 mg PO DAILY [facility] Last Admin: 08/13/19 08:20 Dose: Not Given Lisinopril (Prinivil Tab*) 10 mg PO DAILY [facility] Last Admin: 08/13/19 08:20 Dose: Not Given Multivitamins (Theragran Tab*) 1 tab PO DAILY [facility] Last Admin: 08/13/19 08:20 Dose: Not Given Olanzapine (Zyprexa Tab*) 10 mg PO Q6H PRN PRN Reason: AGITATION Last Admin: 08/13/19 08:09 Dose: 10 mg Valproic Acid (Depakene Cap(*)) 500 mg PO BID [facility] Last Admin: 08/13/19 08:20 Dose: Not Given - Discharge Plan Discharge Plan: Consider Longer Term Tx
[2019-08-13] MEDS ORDERED: OLANzapine TAB*ODT* 10 MG TAB PO PRN (14:02)
[2019-08-14] MEDS: Vitamin THERAPEUTIC TAB PO SCH (08:20)
[2019-08-14] MEDS: Lisinopril TAB* 10 MG PO SCH (08:20)
[2019-08-14] MEDS: Valproic Acid CAP(*) 250 MG PO SCH ×2 (08:20→20:20)
[2019-08-14] MEDS: Hydrochlorothiazide TAB* 25 MG PO SCH (08:20)
--- NOTE | 2019-08-14 10:01 | PN ---
Subjective - Subjective Date of Service: 08/15/19 Service Type: [id number] Hosp care 35 min high complexity Subjective: Patient was disruptive overnight intrusive with peers and staff and refused to participate with family in attempt to address housing needs. Objective - General Observations Appearance: Disheveled Appears Stated Age: Yes Stature: Overweight Posture: Slumped Eye Contact: Average Behavior/Activity: Peculiar - Interaction Observations Attitude Towards Examiner: Defensive Stated Mood: Irritable Affect: Restricted Speech Pattern/Tone: Rambling Thought Process: Loose Associations Perception: Derealization Thought Content: Phobic Thought Process: Lethality: Paranoid Ideation Hallucination Type: Denies Delusion Type: Thought Broadcasting - Cognitive Function Orientation: A&O x 4 Level of Consciousness: Awake Judgment Within Normal Limits: No Ability to Make Reasonable Decisions: Serverely Impaired - Medication Compliance Cooperative with Inpatient Medication Regimen: No - Group Participation Participates in Group Activities: No Assessment - Assessment Merits Inpatient Hospitalization: For Immediate Safety Inpatient DSM-V Dx: F20.9 Clinical Impression: 54 year old female with history of schizophrenia and medication non- compliance currently having a episode of psychosis and requires admission to the B[facility] at [facility]. Plan - Plan Treatment Plan: Name: CHANTAL GRESHAM Birthdate: 1965 [id number] # Q15 minute observation. # The patient requires psychiatric inpatient admission at this time to assure safety, receive treatment and work toward stabilization. # Received Invega 234mg long acting IM 07/25/19 and received 156mg booster today without complication > or equal to 156mg next due on 08/22/19 # Attempt was made to set up care with the ACT team however the patient was to disorganized to participate with ACT services. # Collaboration with Social Work # Court ruled in favor of Treatment over objection #[facility] referral accepted and awaiting bed availability # Administrative hearing completed and ruled in favor of transfer to [facility] # Patient not a good clozapine candidate due to non compliance with blood draws # Restrict phone access at staff discretion. # Depakote 500mg PO BID for mood stabilization and valproic acid level # Court ordered treatment- If patient refuses po depakote will give zyprexa IM #Goals : Psychiatric stabilization Tentative Discharge: Pending bed availability at [facility] Sodium 138 mmol/L (135-145) 07/26/19 15:13 Potassium 4.0 mmol/L (3.5-5.0) 07/26/19 15:13 BUN 15 mg/dL (6-24) 07/26/19 15:13 Creatinine 0.79 mg/dL (0.51-0.95) 07/26/19 15:13 Calcium 9.3 mg/dL (8.6-10.3) 07/26/19 15:13 AST 31 U/L (13-39) 07/26/19 15:13 ALT 41 U/L (7-52) 07/26/19 15:13 Medications: Current Medications Acetaminophen (Tylenol Tab*) 650 mg PO Q4H PRN PRN Reason: for pain; or Temp >101 F Last Admin: 07/23/19 03:52 Dose: 650 mg Al Hydrox/Mg Hydrox/Simethicone (Maalox Plus*) 30 ml PO Q4H PRN PRN Reason: INDIGESTION Hydrochlorothiazide (Hydrodiuril Tab*) 25 mg PO DAILY [facility] Last Admin: 08/14/19 08:20 Dose: Not Given Lisinopril (Prinivil Tab*) 10 mg PO DAILY [facility] Last Admin: 08/14/19 08:20 Dose: Not Given Multivitamins (Theragran Tab*) 1 tab PO DAILY [facility] Last Admin: 08/14/19 08:20 Dose: Not Given Olanzapine (Zyprexa *Odt*) 10 mg PO Q6H PRN PRN Reason: AGITATION Valproic Acid (Depakene Cap(*)) 500 mg PO BID [facility] Last Admin: 08/14/19 08:20 Dose: Not Given
[2019-08-15] MEDS: Valproic Acid CAP(*) 250 MG PO SCH ×2 (09:59→23:37)
[2019-08-15] MEDS: Hydrochlorothiazide TAB* 25 MG PO SCH (09:59)
[2019-08-15] MEDS: Lisinopril TAB* 10 MG PO SCH (09:59)
[2019-08-15] MEDS: Vitamin THERAPEUTIC TAB PO SCH (09:59)
--- NOTE | 2019-08-15 10:09 | PN ---
Subjective - Subjective Date of Service: 08/15/19 Service Type: [id number] Hosp care 35 min high complexity Subjective: Patient is excited about going to [facility] tomorrow, she responded saying that is terrific. Patient ate meals, no overnight events. Objective - General Observations Appearance: Disheveled, Neat Appears Stated Age: Yes Stature: Overweight Posture: Slumped Eye Contact: Avoidant Behavior/Activity: Peculiar - Interaction Observations Attitude Towards Examiner: Defensive Stated Mood: Dysphoric Affect: Restricted Speech Pattern/Tone: Rambling Thought Process: Loose Associations Perception: Depersonalization Thought Content: Preoccupation/Ruminations Hallucination Type: Denies Delusion Type: Thought Insertion - Cognitive Function Orientation: A&O x 4 Level of Consciousness: Awake Ability to Make Reasonable Decisions: Serverely Impaired - Medication Compliance Cooperative with Inpatient Medication Regimen: No - Group Participation Participates in Group Activities: No Assessment - Assessment Inpatient DSM-V Dx: F20.9 Clinical Impression: 54 year old female with history of schizophrenia and medication non- compliance currently having a episode of psychosis and requires admission to the BSU at [facility]. Plan - Plan Treatment Plan: Name: CHANTAL GRESHAM Birthdate: 1965 [id number] # Q15 minute observation. # The patient requires psychiatric inpatient admission at this time to assure safety, receive treatment and work toward stabilization. # Received Invega 234mg long acting IM 07/25/19 and received 156mg booster today without complication > or equal to 156mg next due on 08/22/19 # Attempt was made to set up care with the ACT team however the patient was to disorganized to participate with ACT services. # Collaboration with Social Work # Court ruled in favor of Treatment over objection # [facility] referral accepted and transfer planed for 11am on Monday, doc to doc scheduled for 9am Monday. # Administrative hearing completed and ruled in favor of transfer to [facility] # Patient not a good clozapine candidate due to non compliance with blood draws # Restrict phone access at staff discretion. # Depakote 500mg PO BID for mood stabilization and valproic acid level # Court ordered treatment- If patient refuses po depakote will give zyprexa IM #Goals : Psychiatric stabilization Tentative Discharge: Monday at 11am to [facility] Sodium 138 mmol/L (135-145) 07/26/19 15:13 Potassium 4.0 mmol/L (3.5-5.0) 07/26/19 15:13 BUN 15 mg/dL (6-24) 07/26/19 15:13 Creatinine 0.79 mg/dL (0.51-0.95) 07/26/19 15:13 Calcium 9.3 mg/dL (8.6-10.3) 07/26/19 15:13 AST 31 U/L (13-39) 07/26/19 15:13 ALT 41 U/L (7-52) 07/26/19 15:13 Continued Medication Management: Continue Outpt Medication Medications: Current Medications Acetaminophen (Tylenol Tab*) 650 mg PO Q4H PRN PRN Reason: for pain; or Temp >101 F Last Admin: 07/23/19 03:52 Dose: 650 mg Al Hydrox/Mg Hydrox/Simethicone (Maalox Plus*) 30 ml PO Q4H PRN PRN Reason: INDIGESTION Hydrochlorothiazide (Hydrodiuril Tab*) 25 mg PO DAILY [facility] Last Admin: 08/15/19 09:59 Dose: Not Given Lisinopril (Prinivil Tab*) 10 mg PO DAILY [facility] Last Admin: 08/15/19 09:59 Dose: Not Given Multivitamins (Theragran Tab*) 1 tab PO DAILY [facility] Last Admin: 08/15/19 09:59 Dose: Not Given Olanzapine (Zyprexa *Odt*) 10 mg PO Q6H PRN PRN Reason: AGITATION Valproic Acid (Depakene Cap(*)) 500 mg PO BID [facility] Last Admin: 08/15/19 09:59 Dose: Not Given - Discharge Plan Discharge Plan: Consider Longer Term Tx
--- NOTE | 2019-08-16 10:22 | DS ---
Subjective - Subjective Service Types: [id number] [facility] Day Mgmt complex over 30 min Discharge Date: 08/16/19 Subjective: CC: " I am excellent " The patient was seen and evaluated before discharge today. Doctor to doctor sign out to transferring facility [facility] took place today before the patient was discharged. Justification for admission: Immediate Safety. CC " I have purity" Patient brought to [facility] emergency department by ambulance. When asking the patient the things that led to coming to the hospital the patient replied " what about me God, and not the homeless man ? Food is greer and should not be thrown away, time and evil will results in mistakes and no one concisely." Patient refusing medications at this time stating that all medications are a depressant and do you want me to be depressed? Patient is refusing to take medical and psychiatric medications. Patient denied access to firearms. Patient reported "perfect" sleep and appetite. The patient denied homicidal ideation intent or plan. The patient denied auditory hallucinations and reported seeing the future. Patient unable to participate in meaningful way to gather a accurate psychiatric review of systems PAST PSYCHIATRIC HISTORY: Prior Diagnosis : Schizophrenia History of past Psychiatric Hospitalizations: Multiple prior hospitalizations at [facility] that include 11/2015, 07/2013, 03/2013. [facility] 2008 for 7 months History of past suicide/homicide attempts : Denied past suicide attempts or self injurious behaviors. No history of violence. Outpatient follow-up: Medications: Past trials of medications include risperdal, Invega injection , trazodone Guardianship: None. FAMILY HISTORY: - Suicide: Denied family history of suicide. - Mental illness: Brother bipolar disorder, sister schizophrenia. - Substance abuse: Denied substance abuse among family members. SUBSTANCE ABUSE HISTORY: Denied using alcohol, tobacco, heroin cocaine or other illicit substances. Denied abusing pills for recreational use. Denied past Substance abuse treatment. SOCIAL HISTORY: - Denied a history of childhood physical and or sexual abuse Born in [facility] and raised by both parents. - Education: Completed College. No history of special education. - Living situation: Currently lives in [facility] - Employment history: unemployed on SSD - Relationship: Single and has no children. - Legal history: Denied - service history: Denied PAST MEDICAL HISTORY: Hypertension. - Allergies: Sulfa drug allergy Physical Exam: Please see ED note Mental Status Exam on Admission APPEARANCE : 54 year old Female who appears stated age. Patient is not malodourous, and appears to have fair hygiene and grooming. BEHAVIOR: able to respond to redirection. EYE CONTACT: Fair PSYCHOMOTOR ACTIVITY: No psychomotor agitation or retardation. MOVEMENTS: No abnormal movements observed. SPEECH : hyperverbal MOOD : "Great " AFFECT : Type elevated Range is restricted Mood Incongruent THOUGHT PROCESS: tangential , loose associations , THOUGHT CONTENT: grandiose delusions PERCEPTION: Appears to responding to internal cues and seeing the future. SUICIDALITY Denied suicidal ideation, intent or plan. HOMICIDALITY Denied homicidal ideation, intent or plan. Insight/judgment: Poor insight and judgment ORIENTATION: Oriented to self, location, and time. Diagnosis on Admission: Schizophrenia. Diagnosis on Discharge: Schizoaffective disorder, bipolar type. Condition at the time of discharge: At the time of discharge patient continues to be defiant and refuse vital signs and oral medications. The patient will be transferred to [facility] by ambulance. Objective - General Observations Appearance: Disheveled Appears Stated Age: Yes Stature: Overweight Posture: Slumped Eye Contact: Intense Behavior/Activity: Accelerated - Interaction Observations Attitude Towards Examiner: Uncooperative Stated Mood: Elevated Affect: Bright Speech Pattern/Tone: Inappropriate Thought Process: Flight of Ideas Perception: Depersonalization Thought Content: Obsessional Hallucination Type: Denies Delusion Type: Denies - Cognitive Function Orientation: A&O x 4 Level of Consciousness: Awake Judgment Within Normal Limits: No Ability to Make Reasonable Decisions: Serverely Impaired - Medication Compliance Cooperative with Inpatient Medication Regimen: No - Group Participation Participates in Group Activities: No Treatment Course & Assessment Clinical Course & Impression: Hospital course part A: 54 year old female with history of schizophrenia and medication non- compliance currently having a episode of psychosis and requires admission to the B[facility] at [facility]. Hospital course part B: Labs ordered included CBC, CMP, UDS, TSH, HBA1c, TSH, Valproic acid, Toxicology screen, Urine analysis, and lipid profile. Labs were reviewed and did not require the need for further evaluation. Vital signs were monitored during the course of admission. EKG ordered for risk of QT prolongation of antipsychotic medication. The patient was admitted to the adult behavioral unit and placed on 15 minute check for safety. At a later time the patient was on Q30 minute observation and staff pass privileges and was unable to follow unit protocol and was placed back on Q15 minute observation. The patient was disruptive to her care on the unit and would intermittently refuse medications and vital signs. Her appetite was adequate on the unit and she tolerated medication changes without side effects. Group therapy and services were offered. The risks, benefits, and alternative treatment options were discussed as well as of the risks of refusing treatment. Treatment associated risks discussed. Monitoring for metabolic changes was put in place and emphasized to be continued to be monitored . The patient was informed not to abruptly stop or start new medications before consulting with a medical professional. Patient was intrusive with staff and peers on the unit and was unable to participate in her own care in a way that reflected sound judgment, such as lacking the understanding of the importance of measuring vital signs and taking blood pressure mediations The patient denied suicidal and or homicidal ideation intent or plan. The patient was unable to strengthen coping mechanisms. Patient was unable recognize how her decisions impact her health and mental health. Safety precautions were put in place which included involving the patient and their family In addition, implementing follow up care, screening for the need to remove/securing firearms, weapons and stockpile of medications. Patient/ family instructed to immediately call 911 should any safety concerns arise. AIMS was performed and insignificant for involuntary movement disorders. The patient was advised of the 24 hour / 7 days a week availability of the emergency room and to call 911 in the event of an emergency such as being suicidal and/ or homicidal. The patient was informed of the contact information for [facility], Suicide Prevention and Crisis Services, National Suicide Prevention Lifeline, [facility], Alcoholics Anonymous, and [facility]. Valproic acid level was ordered however the patient refused. Medications started included Invega 234mg long acting IM on 07/25/19 and booster of 156mg on 07/29/19 > or equal Invega 156mg IM next due after . Depakote 500mg PO BID for mood stabilization. Zyprexa ODT 10mg Q6H PRN. Patient had high blood pressure and medical team recommended hydrochlorothiazide 25mg daily and lisinopril 10mg daily. Patient had intermittent compliance with treatment and during behavioral incidents she would be given the option of getting PO or IM zyprexa and she would end up taking the PO. Treatment over objection court hearing took place and ruled in favor of treatment. Attempt was made to set up care with the ACT team however the patient was far to disorganized to participate with ACT services. Administrative hearing completed and ruled in favor of transfer to [facility]. During the course of hospitalization the patient was not compliant with labs and therefore clozapine was unable to be put in place. Family meeting took place before discharge. The family is involved in her care and are supportive. The family confirmed that the patient has no access to firearms or stockpiles of medications. Consults included to hospitalist for hypertension and recommendations were followed and put in place. Patient was not assaultive during the course of admission. Patient will be discharged to [facility] for further stabilization and be transported by ambulance. Outpatient followup with her PCP Dr. Holt. Patient is not at her baseline and requires further stabilization. Attempt was made to apply for [place] housing due to patients need for housing and the patient refused to sign paperwork and participate in this process even with encouragement from her family. Patient informed of risks of refusing treatment. Risk factors were mitigated by establishing the patients baseline with close contacts and arranging a family meeting. Implementing precautionary safety measures by confirming no stockpiles of medications and no access to firearms , providing mental health treatment, transferred to [facility] for further stabilization, provided a supportive care environment and therapy resources during the course of hospitalization. Safety plan was reviewed with the patient and treatment team Tailored treatment plan to provide the best chance for medication compliance. Risk factors: Patient non- compliant with treatment, , Age, single, history of mental illness. Protective factors: Currently no suicidal ideation, intent or plan. No prior suicide attempts Has strong family support system. No history of service. Currently no feelings of hopelessness, not in an occupation of social isolation, doesnt have multiple medical conditions, no family history of suicide, doesnt have access to firearms. No current substance abuse. No current alcohol abuse. Not an anniversary of a loss of a loved one. No changes in relationship status. Currently future orientated. Sodium 138 mmol/L (135-145) 07/26/19 15:13 Potassium 4.0 mmol/L (3.5-5.0) 07/26/19 15:13 BUN 15 mg/dL (6-24) 07/26/19 15:13 Creatinine 0.79 mg/dL (0.51-0.95) 07/26/19 15:13 Calcium 9.3 mg/dL (8.6-10.3) 07/26/19 15:13 AST 31 U/L (13-39) 07/26/19 15:13 ALT 41 U/L (7-52) 07/26/19 15:13 Merits Inpatient Hospitalization: Yes Clear for Discharge: Other - Going to [facility] Inpatient DSM-V Dx: F20.9 Discharge Planning - Discharge Planning Discharge Plan: Consider Longer Term Tx Outpatient Program: [facility] Recommendations for Continuing Care: Medication Management, Routine Metabolic Monitoring, Primary Care Followup Medications: Current Medications Acetaminophen (Tylenol Tab*) 650 mg PO Q4H PRN PRN Reason: for pain; or Temp >101 F Last Admin: 07/23/19 03:52 Dose: 650 mg Al Hydrox/Mg Hydrox/Simethicone (Maalox Plus*) 30 ml PO Q4H PRN PRN Reason: INDIGESTION Hydrochlorothiazide (Hydrodiuril Tab*) 25 mg PO DAILY [facility] Last Admin: 08/15/19 09:59 Dose: Not Given Lisinopril (Prinivil Tab*) 10 mg PO DAILY [facility] Last Admin: 08/15/19 09:59 Dose: Not Given Multivitamins (Theragran Tab*) 1 tab PO DAILY [facility] Last Admin: 08/15/19 09:59 Dose: Not Given Olanzapine (Zyprexa *Odt*) 10 mg PO Q6H PRN PRN Reason: AGITATION Valproic Acid (Depakene Cap(*)) 500 mg PO BID [facility] Last Admin: 08/15/19 23:37 Dose: Not Given Discharge Planning: Prescriptions provided for discharge [] Yes [x] No Will be transferred to [facility] with medication list. Follow up care details as per social work arrangements. Patient response to discharge plan: [x] eager for discharge [] agreeable with discharge plan [] ambivalent about discharge [] disagrees with discharge today
[2019-08-16] MEDS: Lisinopril TAB* 10 MG PO SCH (10:30)
[2019-08-16] MEDS: Valproic Acid CAP(*) 250 MG PO SCH (10:30)
[2019-08-16] MEDS: Vitamin THERAPEUTIC TAB PO SCH (10:30)
[2019-08-16] MEDS: Hydrochlorothiazide TAB* 25 MG PO SCH (10:30)
== END 2019-08-16 11:10 | DRG 885 ==
LOC: ED 01:45 → BSU 05:15
PROVIDERS: ADMIT Psychiatry & Neurology Psychiatry; ATTEND Psychiatry & Neurology Psychiatry
PROC: GZHZZZZ Group Psychotherapy (ICD-10-PCS; principal; 2019-08-05)
DX: F25.0 Schizoaffective disorder, bipolar type (principal); E66.3 Overweight; I10 Essential (primary) hypertension; Z56.0 Unemployment, unspecified; Z88.2 Allergy status to sulfonamides; Z68.31 Body mass index [BMI] 31.0-31.9, adult; Z91.14 Patient's other noncompliance with medication regimen; Z28.21 Immunization not carried out because of patient refusal
CPT/HCPCS: 36415; 80053; 80307; 80320; 80329; 81003; 81015; 84443; 85025; 87086; 90853; 99222; 99231; 99233; 99238; 99284; A9270-GY; G0480

== ENCOUNTER 2024-08-21 03:27 | Inpatient (IN) ==
[2024-08-21 03:44] VITALS: BP 0/0
[2024-08-21 06:29] LABS: ABS Monocytes 0.3 10^3/uL (0.0-0.9); Eosinophil % 0.2 %; Hematocrit 44.2 % (35-45); Lymphocyte % 16.2 %; Mean Corpuscular Hemoglobin 29.1 pg (27-33); Mean Corpuscular Hgb Conc 33.9 g/dL (31-36); Mean Corpuscular Volume 85.7 fL (80-97); Mean Platelet Volume 7.8 fL (7.5-11.2); Nucleated Red Blood Cells % 0.1 %/100WBC (0.0-0.8); Platelet Count 205 10^3/uL (150-450); Red Blood Count 5.16 10^6/uL (3.63-4.92); Red Cell Distribution Width 13.9 % (12-17); White Blood Count 6.4 10^3/uL (3.8-11.8)
[2024-08-21 06:37] LABS: Urine Appearance Clear; Urine Bilirubin Negative (Negative); Urine Blood Negative (Negative); Urine Color Light-Yellow; Urine Glucose Negative (Negative); Urine Ketones Negative (Negative); Urine Nitrite Negative (Negative); Urine Protein Negative (Negative); Urine Specific Gravity 1.015 (1.002-1.030); Urine Urobilinogen Negative (Negative)
[2024-08-21 07:08] LABS: ALT 25 U/L (7-52); AST 22 U/L (13-39); Acetaminophen < 15 mcg/mL; Albumin 4.4 g/dL (3.2-5.2); Albumin/Globulin Ratio 1.6 (1-3); Alcohol, S < 13 mg/dL (<13); Alkaline Phosphatase 71 U/L (35-149); Anion Gap 5 mmol/L (2-16); Blood Urea Nitrogen 20 mg/dL (6-24); CO2 Carbon Dioxide 32 mmol/L (22-32); Calcium 9.6 mg/dL (8.6-10.3); Chloride 101 mmol/L (101-111); Creatinine, Serum 0.76 mg/dL (0.51-0.95); Globulin 2.7 g/dL (2-4); Glucose 105 mg/dL (70-100); Potassium 4.5 mmol/L (3.5-5.0); Salicylate < 2.50 mg/dL (<30); Sodium 138 mmol/L (135-145); Total Bilirubin 0.5 mg/dL (0.2-1.0); Total Protein 7.1 g/dL (6.4-8.9); eGFR CKD-EPI 90.2 (>60)
[2024-08-21 07:10] LABS: Urine Benzodiazepine Screen None Detected (None Detect); Urine Cannabinoids Screen None Detected (None Detect); Urine Opiates Screen None Detected (None Detect)
[2024-08-21 07:22] LABS: TSH Ultra Thyroid Stim Horm 0.85 mcIU/mL (0.34-5.60)
[2024-08-21] MEDS ORDERED: Al Hydrox/Mg Hydrox/Simet LIQ 30 ML UDC PO PRN (08:55)
[2024-08-21] MEDS ORDERED: OLANZapine 10 mg TAB*ODT PO PRN (08:57)
[2024-08-28] MEDS: OLANZapine 5 mg TAB *ODT PO PRN (06:47)
[2024-08-31] MEDS: OLANZapine IM (NF) 10 MG VIAL IM ONE ×3 (08:15→19:06)
[2024-09-05 07:49] LABS: Mean Platelet Volume 7.5 fL (7.5-11.2); Platelet Count 156 10^3/uL (150-450)
[2024-09-05 08:53] LABS: HDL Cholesterol 63.4 mg/dL
[2024-09-05] MEDS: Paliperidone SUSTENNA 234 MG/1.5 ML IM ONE (12:50)
== END 2024-09-06 11:30 | DRG 885 ==
LOC: ED 03:27 → EDHOLD 08:55 → BSU 10:30
PROVIDERS: ADMIT Psychiatry & Neurology Psychiatry; ATTEND Psychiatry & Neurology Psychiatry